=== PATIENT | female | born 1945 | race Caucasian/White ===

== ENCOUNTER 2016-10-21 12:40 | Outpatient (CLI) | payer MEDICARE | END 2016-10-21 12:41 | disposition home or self-care (01) | DX: R05 Cough (principal); R06.2 Wheezing; R91.8 Other nonspecific abnormal finding of lung field ==

== ENCOUNTER 2018-01-19 13:08 | Outpatient (CLI) | payer MEDICARE, MEDICAID | END 2018-01-19 13:09 | disposition critical access hospital (66) | LOC: EMS 13:08 | PROVIDERS: ATTEND Surgery | DX: H57.8 Other specified disorders of eye and adnexa (principal) | CPT/HCPCS: A0425; A0429 ==

== ENCOUNTER 2018-01-19 13:29 | Emergency (ER) | payer MEDICARE ==
--- NOTE | 2018-01-19 13:41 | ED Physician Documentation ---
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 Today there is some material in the eye that worried everybody. She has no acute complaints, it is not painful. 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: None Psych: None Musculoskeletal: Osteoarthritis Derm: None - Past Surgical History Past Surgical History: Yes General: Appendectomy HEENT: Detached retina repair - Present Medications Home Medications: Ambulatory Orders Medication Instructions Recorded Confirmed Rosuvastatin Calcium [Crestor] 20 mg PO HS 01/27/13 07/01/16 Acetaminophen [Tylenol] 650 mg PO Q6H PRN 07/01/16 07/01/16 Ascorbic Acid [Vitamin C] 500 mg PO DAILY 07/01/16 07/01/16 Calcium Carbonate [Tums (Calcium 500 mg PO DAILY 07/01/16 07/01/16 Carbonate 500mg)] Cholecalciferol [Vitamin D3] 800 unit PO DAILY 07/01/16 07/01/16 Diclofenac Sodium 75 mg PO DAILY 07/01/16 07/01/16 Docusate Sodium 100 mg PO DAILY 07/01/16 07/01/16 Gabapentin 2 cap PO DAILY 07/01/16 07/01/16 Ibuprofen 200 mg PO Q8H PRN 07/01/16 07/01/16 Levothyroxine [Synthroid] 50 mcg PO QDAC 07/01/16 07/01/16 Multivitamin [Multivitamins] 1 each PO DAILY 07/01/16 07/01/16 Omeprazole 40 mg PO DAILY 07/01/16 07/01/16 Oxybutynin [Ditropan] 10 mg PO DAILY PM 07/01/16 07/01/16 Venlafaxine ER [Effexor ER] 37.5 mg PO DAILY 07/01/16 07/01/16 amLODIPine [Norvasc] 5 mg PO BID 07/01/16 07/01/16 oxyCODONE/ACET 5/325 [Percocet 5 1 tab PO Q8H PRN 07/01/16 07/01/16 mg/325 mg] Polyvinyl Alcohol/Povidone 2 drops OP Q2H PRN #6 bottle 01/19/18 [Artificial Tears Drops] - Allergies Allergies/Adverse Reactions: Allergies Allergy/AdvReac Type Severity Reaction Status Date / Time No Known Drug Allergies Allergy Verified 01/27/13 09:04 - Social History Does the pt smoke?: No Smoking Status: Never smoker Does the pt drink ETOH?: Yes Does the pt have substance abuse?: No - Immunizations Immunizations are current?: No Immunizations: TDAP >10years/unknown - POLST Patient has POLST: No PD ED PE NORMAL - Vitals Vital signs reviewed: Yes - General General: Alert and oriented X 3, No acute distress - HEENT HEENT: Other (Her chamber is completely opacified. There is some material that has a tissue like density on the medial side of the sclera of the Left eye that is densely adherent to the globe.) - Neck Neck: Supple, no meningeal sign, No bony TTP - Neuro Neuro: Alert and oriented X 3 - Psych Psych: Normal mood, Normal affect Results - Vitals Vitals: Vital Signs - 24 hr 01/19/18 01/19/18 13:30 15:12 Temperature 37.2 C Heart Rate 88 82 Respiratory 16 16 Rate Blood Pressure 155/74 H 117/83 H O2 Saturation 95 96 Oxygen O2 Source Room air PD MEDICAL DECISION MAKING - ED course ED course: She has a left eye that is already blind, she has some tissue on the medial side , I am not quite sure what it represents. I did speak with the physician predator control trapper for her eye doctor, Dr Socrates Jett, who felt that there was no urgent intervention needed she just needs to follow-up in the office. Departure - Departure Disposition: 01 Home, Self Care Clinical Impression: Abnormal eye finding Condition: Good Record reviewed to determine appropriate education?: Yes Follow-Up: Yaniv Lynn MD [Provider Admit Priv/Credential] - Prescriptions: Polyvinyl Alcohol/Povidone [Artificial Tears Drops] 2 drops OP Q2H PRN #6 bottle PRN Reason: irritation Comments: She needs to follow-up with the eye doctor, make the next available appointment. No specific treatment is required at this juncture. Your blood pressure was elevated today on check into the emergency department. This does not mean that you have hypertension, it is a common phenomenon to come to the emergency department and have elevated blood pressure. I recommend that you see your primary care physician within the week to have it rechecked when you are feeling better. Discharge Date/Time: 01/19/18 15:15
[2018-01-19 15:13] VITALS: BP 117/83
== END 2018-01-19 15:15 | disposition home or self-care (01) ==
LOC: EDUNIT# → ED 13:29
DX: H57.9 Unspecified disorder of eye and adnexa (principal); H54.62 Unqualified visual loss, left eye, normal vision right eye; I10 Essential (primary) hypertension; G35 Multiple sclerosis
CPT/HCPCS: 99283

== ENCOUNTER 2018-03-09 08:00 | Outpatient (CLI) | payer MEDICARE, MEDICAID ==
[2018-03-09 14:11] LABS: BASOPHILS % (AUTO) 0.2 %; EOSINOPHILS # (AUTO) 0.1 10^3/uL (0.0-0.7); EOSINOPHILS % (AUTO) 1.4 %; HGB - HEMOGLOBIN 13.7 g/dL (12.0-16.0); LYMPHOCYTES # (AUTO) 2.4 10^3/uL (1.5-3.5); LYMPHOCYTES % (AUTO) 23.1 %; MEAN CORPUSCULAR HEMOGLOBIN 31.2 pg (27.0-31.0); MEAN CORPUSCULAR HGB CONC 33.4 g/dL (32.0-36.0); MEAN CORPUSCULAR VOLUME 93.4 fL (81.0-99.0); MEAN PLATELET VOLUME 8.4 fL (7.9-10.8); MONOCYTES # (AUTO) 1.1 10^3/uL (0.0-1.0); MONOCYTES % (AUTO) 10.1 %; NEUTROPHILS # (AUTO) 6.8 10^3/uL (1.5-6.6); NEUTROPHILS % (AUTO) 65.2 %; PLT - PLATELET COUNT 323 10^3/uL (130-450); RED BLOOD COUNT 4.38 10^6/uL (4.20-5.40); RED CELL DISTRIBUTION WIDTH 14.5 % (12.0-15.0); WHITE BLOOD COUNT 10.4 x10^3/uL (4.8-10.8)
[2018-03-09 14:22] LABS: ALBUMIN 3.5 g/dL (3.2-5.5); ALBUMIN/GLOBULIN RATIO 0.7 (1.0-2.2); BILIRUBIN,TOTAL 0.4 mg/dL (0.2-1.0); CALCIUM 8.9 mg/dL (8.5-10.3); CREATININE 0.6 mg/dL (0.4-1.0); TOTAL PROTEIN 8.5 g/dL (6.7-8.2)
== END 2018-03-09 08:01 | disposition home or self-care (01) ==
LOC: LAB.R 08:00
PROVIDERS: ATTEND Internal Medicine
DX: I10 Essential (primary) hypertension (principal); E03.9 Hypothyroidism, unspecified; Z79.899 Other long term (current) drug therapy
CPT/HCPCS: 80053; 84443; 85025

== ENCOUNTER 2018-09-05 11:20 | Outpatient (CLI) | payer MEDICARE, MEDICAID ==
--- NOTE | 2018-09-05 12:56 | XRAY Report ---
Reason: KNEE PAIN,LEFT Procedure Date: 09/05/2018 Accession Number: [id number] / [id number] Procedure: XR - Knee 3 View LT CPT Code: FULL RESULT: EXAM: LEFT KNEE RADIOGRAPHY EXAM DATE: 09/05/2018 11:51 AM. CLINICAL HISTORY: Left knee pain for 6 months with a sensation of the knee giving way. COMPARISON: None. TECHNIQUE: 3 views. FINDINGS: Bones: Normal. No fractures or bone lesions. Joints: There are mild to moderate degenerative changes in the weightbearing compartments, medially predominant. No effusion. No subluxations. Soft Tissues: Normal. No soft tissue swelling. IMPRESSION: Degenerative disease. RADIA
== END 2018-09-05 11:21 | disposition home or self-care (01) ==
LOC: DI 11:20
PROVIDERS: ATTEND Nurse Practitioner Primary Care
DX: M17.12 Unilateral primary osteoarthritis, left knee (principal)

== ENCOUNTER 2018-10-17 08:00 | Outpatient (CLI) | payer MEDICARE, MEDICAID ==
[2018-10-17 15:56] LABS: BASOPHILS % (AUTO) 0.3 %; EOSINOPHILS # (AUTO) 0.1 10^3/uL (0.0-0.7); EOSINOPHILS % (AUTO) 1.1 %; HGB - HEMOGLOBIN 13.1 g/dL (12.0-16.0); LYMPHOCYTES # (AUTO) 2.4 10^3/uL (1.5-3.5); LYMPHOCYTES % (AUTO) 24.4 %; MEAN CORPUSCULAR HEMOGLOBIN 31.3 pg (27.0-31.0); MEAN CORPUSCULAR HGB CONC 34.1 g/dL (32.0-36.0); MEAN CORPUSCULAR VOLUME 91.7 fL (81.0-99.0); MEAN PLATELET VOLUME 8.2 fL (7.9-10.8); MONOCYTES % (AUTO) 10.2 %; NEUTROPHILS # (AUTO) 6.4 10^3/uL (1.5-6.6); PLT - PLATELET COUNT 326 10^3/uL (130-450); RED BLOOD COUNT 4.18 10^6/uL (4.20-5.40); RED CELL DISTRIBUTION WIDTH 14.2 % (12.0-15.0); WHITE BLOOD COUNT 9.9 x10^3/uL (4.8-10.8)
== END 2018-10-17 23:59 | disposition home or self-care (01) ==
LOC: LAB.R 08:00
PROVIDERS: ATTEND Nurse Practitioner Primary Care
DX: Z79.899 Other long term (current) drug therapy (principal); R05 Cough; I50.9 Heart failure, unspecified
CPT/HCPCS: 83880; 84132; 85025

== ENCOUNTER 2018-10-17 15:50 | Outpatient (CLI) | payer MEDICARE, MEDICAID ==
--- NOTE | 2018-10-17 16:32 | XRAY Report ---
Reason: HEART FAILURE, COUGH Procedure Date: 10/17/2018 Accession Number: [id number] / [id number] Procedure: XR - Chest 2 View X-Ray CPT Code: 55772 FULL RESULT: EXAM: CHEST RADIOGRAPHY EXAM DATE: 10/17/2018 04:04 PM. CLINICAL HISTORY: HEART FAILURE, COUGH. COMPARISON: 10/21/2016. TECHNIQUE: 2 views. FINDINGS: Lungs/Pleura: Low inspiratory volume. No focal consolidation. Scarring in probable subsegmental bandlike atelectasis at lung bases. No pleural effusion. No pneumothorax. Mediastinum: Heart and mediastinal contours are unremarkable. Other: Exaggeration of thoracic kyphosis, scoliosis and spondylotic changes again seen. No acute bone abnormality. IMPRESSION: 1. No acute cardiopulmonary disease. Probable subsegmental atelectasis at lung bases without separate consolidation. 2. Exam otherwise as above. RADIA
== END 2018-10-17 15:51 | disposition home or self-care (01) ==
LOC: DI 15:50
PROVIDERS: ATTEND Nurse Practitioner Primary Care
DX: R05 Cough (principal); I50.9 Heart failure, unspecified; Z79.899 Other long term (current) drug therapy
CPT/HCPCS: 71046; 83880; 84132; 85025

== ENCOUNTER 2018-11-18 08:00 | Outpatient (CLI) | payer MEDICARE, MEDICAID ==
[2018-11-18 14:17] LABS: CALCIUM 9.1 mg/dL (8.5-10.3); CREATININE 0.6 mg/dL (0.4-1.0)
== END 2018-11-18 23:59 | disposition home or self-care (01) ==
LOC: LAB.R 08:00
PROVIDERS: ATTEND Nurse Practitioner Primary Care
DX: R60.9 Edema, unspecified (principal); Z79.899 Other long term (current) drug therapy
CPT/HCPCS: 80048

== ENCOUNTER 2019-02-22 08:00 | Outpatient (CLI) | payer MEDICARE, MEDICAID | END 2019-02-22 23:59 | disposition home or self-care (01) | LOC: LAB.R 08:00 | PROVIDERS: ATTEND Family Medicine | DX: R35.0 Frequency of micturition (principal) | CPT/HCPCS: 87086 ==

== ENCOUNTER 2019-03-29 08:00 | Outpatient (CLI) | payer MEDICARE, MEDICAID | END 2019-03-29 23:59 | disposition home or self-care (01) | LOC: LAB.R 08:00 | PROVIDERS: ATTEND Family Medicine | DX: N39.0 Urinary tract infection, site not specified (principal) | CPT/HCPCS: 87077; 87086 ==

== ENCOUNTER 2019-06-22 09:06 | Outpatient (CLI) | payer MEDICARE, MEDICAID ==
[2019-06-22 09:32] LABS: BASOPHILS % (AUTO) 0.4 %; EOSINOPHILS # (AUTO) 0.2 10^3/uL (0.0-0.7); EOSINOPHILS % (AUTO) 2.3 %; HGB - HEMOGLOBIN 13.1 g/dL (12.0-16.0); LYMPHOCYTES # (AUTO) 2.8 10^3/uL (1.5-3.5); LYMPHOCYTES % (AUTO) 30.8 %; MEAN CORPUSCULAR HEMOGLOBIN 31.2 pg (27.0-31.0); MEAN CORPUSCULAR HGB CONC 33.3 g/dL (32.0-36.0); MEAN CORPUSCULAR VOLUME 93.6 fL (81.0-99.0); MEAN PLATELET VOLUME 9.5 fL (7.9-10.8); MONOCYTES # (AUTO) 0.9 10^3/uL (0.0-1.0); MONOCYTES % (AUTO) 10.3 %; NEUTROPHILS % (AUTO) 55.6 %; PLT - PLATELET COUNT 316 10^3/uL (130-450); RED CELL DISTRIBUTION WIDTH 14.2 % (12.0-15.0)
[2019-06-22 09:51] LABS: ALBUMIN 3.9 g/dL (3.2-5.5); ALBUMIN/GLOBULIN RATIO 0.8 (1.0-2.2); BILIRUBIN,TOTAL 0.5 mg/dL (0.2-1.0); CALCIUM 9.4 mg/dL (8.5-10.3); CREATININE 0.8 mg/dL (0.4-1.0); TOTAL PROTEIN 8.8 g/dL (6.7-8.2)
[2019-06-22 10:12] LABS: THYROID STIMULATING HORMONE 3.22 uIU/mL (0.34-5.60)
[2019-06-22 10:14] LABS: FREE T4 (FREE THYROXINE) 1.15 ng/dL (0.58-1.64)
--- NOTE | 2019-06-23 08:58 | XRAY Report ---
Reason: SUBLUXATION,JOINT Procedure Date: 06/22/2019 Accession Number: [id number] / [id number] Procedure: XR - Wrist 4 View RT CPT Code: FULL RESULT: EXAM: RIGHT WRIST RADIOGRAPHY EXAM DATE: 06/22/2019 09:50 AM. CLINICAL HISTORY: Subluxation, joint. Patient unable to move thumb. COMPARISON: None. TECHNIQUE: 3 views. FINDINGS: Severe narrowing of the first carpometacarpal articulation, partial collapse of the trapezium. Subchondral sclerotic and cystic changes at the base of the first metacarpal and of the trapezium. There is moderate narrowing of the second carpometacarpal articulation. The thumb is focally flexed at the carpometacarpal articulation. No dislocation identified. The articulations of the wrist elsewhere appear within normal limits. IMPRESSION: Severe focal degenerative changes at the first carpometacarpal articulation. RADIA
== END 2019-06-22 09:07 | disposition home or self-care (01) ==
LOC: LAB 09:06
PROVIDERS: ATTEND Family Medicine
DX: M19.041 Primary osteoarthritis, right hand (principal); K21.9 Gastro-esophageal reflux disease without esophagitis; I10 Essential (primary) hypertension; E03.9 Hypothyroidism, unspecified; G35 Multiple sclerosis
CPT/HCPCS: 36415; 80053; 84439; 84443; 84481; 85025

== ENCOUNTER 2020-03-18 09:09 | Outpatient (CLI) | payer MEDICARE, MEDICAID | END 2020-03-18 09:10 | disposition critical access hospital (66) | LOC: EMS 09:09 | PROVIDERS: ATTEND Surgery | DX: R58 Hemorrhage, not elsewhere classified (principal) | CPT/HCPCS: A0425; A0429 ==

== ENCOUNTER 2020-03-18 09:25 | Emergency (ER) | payer MEDICARE, MEDICAID ==
--- NOTE | 2020-03-18 10:31 | ED Physician Documentation ---
PD HPI GI BLEED - Stated complaint Stated Complaint: BLEEDING - Chief complaint Chief Complaint: Abd Pain - History obtained from History obtained from: Patient - History of Present Illness Timing - onset: Yesterday (staff at [facility] note the patient's Depends to have small spot of blood yesterday, and this morning with large amount of blood in it. She denies diarrhea, abd pain, nausea, dysuria.) Timing - duration: Days (1) Timing - details: Gradual onset (mild blood yesterday, more today) Associated symptoms: Other (not clear if blood from rectum, vaginal, or urine.). No: Diarrhea, Constipation, Abdominal pain Contributing factors: No: Sick contact, NSAID use, Anticoagulated Similar symptoms before: Has not had sx before Recently seen: Not recently seen Review of Systems Constitutional: denies: Fever, Chills Nose: denies: Rhinorrhea / runny nose, Congestion Throat: denies: Sore throat Cardiac: denies: Chest pain / pressure Respiratory: denies: Cough GI: denies: Abdominal Pain, Nausea, Vomiting, Diarrhea : denies: Dysuria Neurologic: denies: Generalized weakness, Near syncope Endocrine: denies: Easy bruising / bleeding PD PAST MEDICAL HISTORY - Past Medical History Cardiovascular: Hypertension Respiratory: None Endocrine/Autoimmune: None GI: None LOAN 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: 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 Psych: None Musculoskeletal: Osteoarthritis Derm: None - Past Surgical History Past Surgical History: Yes General: Appendectomy HEENT: Detached retina repair - Present Medications Home Medications: Ambulatory Orders Medication Instructions Recorded Confirmed Rosuvastatin Calcium [Crestor] 20 mg PO HS 01/27/13 07/01/16 Acetaminophen [Tylenol] 650 mg PO Q6H PRN 07/01/16 07/01/16 Ascorbic Acid [Vitamin C] 500 mg PO DAILY 07/01/16 07/01/16 Calcium Carbonate [Tums (Calcium 500 mg PO DAILY 07/01/16 07/01/16 Carbonate 500mg)] Cholecalciferol [Vitamin D3] 800 unit PO DAILY 07/01/16 07/01/16 Diclofenac Sodium 75 mg PO DAILY 07/01/16 07/01/16 Docusate Sodium 100 mg PO DAILY 07/01/16 07/01/16 Gabapentin 2 cap PO DAILY 07/01/16 07/01/16 Ibuprofen 200 mg PO Q8H PRN 07/01/16 07/01/16 Levothyroxine [Synthroid] 50 mcg PO QDAC 07/01/16 07/01/16 Multivitamin [Multivitamins] 1 each PO DAILY 07/01/16 07/01/16 Omeprazole 40 mg PO DAILY 07/01/16 07/01/16 Oxybutynin [Ditropan] 10 mg PO DAILY PM 07/01/16 07/01/16 Venlafaxine ER [Effexor ER] 37.5 mg PO DAILY 07/01/16 07/01/16 amLODIPine [Norvasc] 5 mg PO BID 07/01/16 07/01/16 oxyCODONE/ACET 5/325 [Percocet 5 1 tab PO Q8H PRN 07/01/16 07/01/16 mg/325 mg] Polyvinyl Alcohol/Povidone 2 drops OP Q2H PRN #6 bottle 01/19/18 [Artificial Tears Drops] Cephalexin [Keflex] 500 mg PO TID #20 capsule 03/18/20 - Allergies Allergies/Adverse Reactions: Allergies Allergy/AdvReac Type Severity Reaction Status Date / Time No Known Drug Allergies Allergy Verified 01/27/13 09:04 - Living Situation Living Situation: reports: Alone Living Arrangement: reports: Assisted living - Social History Does the pt smoke?: No Smoking Status: Never smoker Does the pt drink ETOH?: Yes Does the pt have substance abuse?: No - Immunizations Immunizations are current?: No Immunizations: TDAP >10years/unknown - POLST Patient has POLST: No PD ED PE NORMAL - Vitals Vital signs reviewed: Yes - General General: No acute distress, Well developed/nourished. No: Alert and oriented X 3 (to person and place, not sure of time/month) - HEENT HEENT: Pharynx benign - Neck Neck: Supple, no meningeal sign, No adenopathy - Cardiac Cardiac: RRR, No murmur - Respiratory Respiratory: Clear bilaterally - Abdomen Abdomen: Normal bowel sounds, Soft, Non distended, No organomegaly (ssd) - Female Female : General Manager Farm present (Nurse Cynthia ), Other (no noted vaginal blood nor lesions. There is mild oozing blood from urethra visible. ) - Rectal Rectal: Other (no rectal bleeding noted, no hemorrhoids. Digital exam with some firm stool in vault that appears brown. ) - Back Back: No CVA TTP - Derm Derm: Normal color, Warm and dry - Extremities Extremities: No tenderness to palpate, Normal ROM s pain, No edema, No calf tenderness / cord - Neuro Neuro: automobile relocation engineer 2-12 intact, No motor deficit, No sensory deficit Eye Opening: Spontaneous Motor: Obeys Commands Verbal: Oriented GCS Score: 15 Results - Vitals Vitals: Vital Signs - 24 hr 03/18/20 03/18/20 03/18/20 09:30 12:23 14:00 Temperature 36.7 C 37.1 C Heart Rate 103 H 82 79 Respiratory 16 14 16 Rate Blood Pressure 167/75 H 151/65 H 158/72 H O2 Saturation 95 96 96 Oxygen O2 Source Room air - Labs Labs: Laboratory Tests 03/18/20 03/18/20 03/18/20 10:30 10:30 10:30 WBC 16.6 H RBC 4.29 Hgb 13.5 Hct 40.0 MCV 93.2 MCH 31.5 H MCHC 33.8 RDW 13.8 Plt Count 414 MPV 9.4 Neut # (Auto) 14.1 H Lymph # (Auto) 1.4 L [place] # (Auto) 1.0 Eos # (Auto) 0.0 Baso # (Auto) 0.0 Absolute Nucleated RBC 0.00 Nucleated RBC % 0.0 Sodium 139 Potassium 3.7 Chloride 103 Carbon Dioxide 22 Anion Gap 14.0 H BUN 26 H Creatinine 1.1 H Estimated GFR (MDRD) 48 L Glucose 164 H Calcium 9.2 Total Bilirubin 0.7 AST 18 ALT 23 Alkaline Phosphatase 75 Total Protein 9.0 H Albumin 3.3 Globulin 5.7 H Albumin/Globulin Ratio 0.6 L Lipase 25 Urine Color Urine Clarity Urine pH Ur Specific [place] Urine Protein Urine Glucose (UA) Urine Ketones Urine Occult Blood Urine Nitrite Urine Bilirubin Urine Urobilinogen Ur Leukocyte Esterase Urine RBC Urine WBC Urine WBC Clumps Ur Squamous Epith Cells Urine Bacteria Ur Microscopic Review Urine Culture Comments Blood Type Blood Type Recheck A POSITIVE Antibody Screen 03/18/20 03/18/20 11:18 12:50 WBC RBC Hgb Hct MCV MCH MCHC RDW Plt Count MPV Neut # (Auto) Lymph # (Auto) [place] # (Auto) Eos # (Auto) Baso # (Auto) Absolute Nucleated RBC Nucleated RBC % Sodium Potassium Chloride Carbon Dioxide Anion Gap BUN Creatinine Estimated GFR (MDRD) Glucose Calcium Total Bilirubin AST ALT Alkaline Phosphatase Total Protein Albumin Globulin Albumin/Globulin Ratio Lipase Urine Color RED/BLOODY Urine Clarity BLOODY Urine pH 8.0 H Ur Specific [place] 1.015 Urine Protein >=300 H Urine Glucose (UA) NEGATIVE Urine Ketones 15 H Urine Occult Blood LARGE H Urine Nitrite NEGATIVE Urine Bilirubin NEGATIVE Urine Urobilinogen 0.2 (NORMAL) Ur Leukocyte Esterase TRACE H Urine RBC TNTC H Urine WBC >25 H Urine WBC Clumps PRESENT Ur Squamous Epith Cells FEW Squamous Urine Bacteria Many H Ur Microscopic Review INDICATED Urine Culture Comments INDICATED Blood Type A POSITIVE Blood Type Recheck Antibody Screen NEGATIVE - Rads (name of study) abd/pelvic CT Radiology: Prelim report reviewed (no unusual masses. Some urethral edema c/w cystitis. ), See rad report PD MEDICAL DECISION MAKING - ED course Complexity details: reviewed results, re-evaluated patient (no significant ongoing bleeding, just mild trace of blood from urethra. No clots. ), considered differential, d/w patient Departure - Departure Disposition: 01 Home, Self Care Clinical Impression: Hematuria Qualifiers: Hematuria type: gross Qualified Code(s): R31.0 - Gross hematuria Cystitis, acute Qualifiers: Hematuria presence: with hematuria Qualified Code(s): N30.01 - Acute cystitis with hematuria Condition: Stable Record reviewed to determine appropriate education?: Yes Instructions: ED Hematuria, ED UTI Cystitis Female Prescriptions: Cephalexin [Keflex] 500 mg PO TID #20 capsule Comments: There is no signs of blood in your stool to the rectum. He did have blood coming from urethra from apparent bladder infection. We will treat this with cephalexin 3 times a day for a week. Stay well-hydrated. Tylenol if needed for pains. Recheck if not improved over the next day or 2. Discharge Date/Time: 03/18/20 15:37
[2020-03-18 10:44] LABS: BASOPHILS % (AUTO) 0.2 %; HGB - HEMOGLOBIN 13.5 g/dL (12.0-16.0); LYMPHOCYTES # (AUTO) 1.4 10^3/uL (1.5-3.5); LYMPHOCYTES % (AUTO) 8.3 %; MEAN CORPUSCULAR HEMOGLOBIN 31.5 pg (27.0-31.0); MEAN CORPUSCULAR HGB CONC 33.8 g/dL (32.0-36.0); MEAN CORPUSCULAR VOLUME 93.2 fL (81.0-99.0); MEAN PLATELET VOLUME 9.4 fL (7.9-10.8); MONOCYTES % (AUTO) 6.1 %; NEUTROPHILS # (AUTO) 14.1 10^3/uL (1.5-6.6); NEUTROPHILS % (AUTO) 84.7 %; PLT - PLATELET COUNT 414 10^3/uL (130-450); RED BLOOD COUNT 4.29 10^6/uL (4.20-5.40); RED CELL DISTRIBUTION WIDTH 13.8 % (12.0-15.0); WHITE BLOOD COUNT 16.6 x10^3/uL (4.8-10.8)
[2020-03-18 10:56] LABS: ALBUMIN 3.3 g/dL (3.2-5.5); ALBUMIN/GLOBULIN RATIO 0.6 (1.0-2.2); BILIRUBIN,TOTAL 0.7 mg/dL (0.2-1.0); CALCIUM 9.2 mg/dL (8.5-10.3); CREATININE 1.1 mg/dL (0.4-1.0)
[2020-03-18] MEDS ORDERED: SODIUM CHLORIDE 0.9% 1,000 ML IV STA (11:01)
[2020-03-18] MEDS ORDERED: IOVERSOL 320 100 ML VIAL IVP ONE ×2 (11:27→15:16)
--- NOTE | 2020-03-18 12:37 | CT Report ---
PROCEDURE: Abdomen/Pelvis W INDICATIONS: vaginal bleeding acute CONTRAST: IV CONTRAST: Optiray 320 ml: 100 PO CONTRAST: *NO PO CONTRAST TECHNIQUE: After the administration of oral and intravenous contrast, 5 mm thick sections acquired from the diap hragms to the symphysis. 5 mm thick coronal and sagittal reformats were acquired. For radiation dos e reduction, the following was used: automated exposure control, adjustment of mA and/or kV accordin g to patient size. COMPARISON: 06/25/2014 FINDINGS: Image quality: Excellent. ABDOMEN: Lung bases: Mild bibasilar atelectatic changes. Lung bases are otherwise clear.. Heart size is carmelo l. Solid organs: Liver and spleen are normal in size and enhancement. Gallbladder is unremarkable Audie iary system is non dilated. Pancreas enhances normally. No adrenal nodules. Kidneys demonstrate normal and symmetric uptake of IV contrast. Tiny cortical cysts present bilateral ly. There is mild right hydronephrosis and hydroureter. No nephrolithiasis. Peritoneum and bowel: Bowel loops demonstrate normal wall thickness and caliber. No free fluid or a ir. Mildly increased quantity of rectal stool present. Scattered diverticula throughout the colon. Nodes and vessels: No retroperitoneal or mesenteric adenopathy by size criteria. Aorta and inferior vena cava are normal in size. Miscellaneous: No ventral hernias. PELVIS: Genitourinary: There is circumferential urothelial enhancement and moderate to extensive serosal and perivesicular inflammatory changes. Moderate perivesicular fat stranding. No intraluminal mass or tom cifications in the urinary bladder. The uterus and ovaries appear normal though prominent for age. A pessary is present. This appears to be larger and more hyperdense compared to the prior study, potent ially calcifying, or it has been replaced in the interim. Miscellaneous: No inguinal hernias or adenopathy. Bones: No suspicious bony lesions. No vertebral body compression fractures. IMPRESSION: 1. Findings of acute cystitis. 2. Mild hydroureteronephrosis without obstructing lesion suggests possible ascending infection or rec ently passed calculus. No evidence of pyelonephritis. 3. Pessary present, enlarged and more hyperdense since the prior study. Correlate clinically. Reviewed by: Lexie Paula MD on 03/18/2020 12:36 PM PDT Approved by: Lexie Paula MD on 03/18/2020 12:36 PM PDT Station ID: [id number]
[2020-03-18 13:17] LABS: BILIRUBIN,URINE NEGATIVE (NEGATIVE); GLUCOSE, URINE (UA) NEGATIVE (NEGATIVE); KETONES,URINE (UA) 15 mg/dL (NEGATIVE); LEUKOCYTE ESTERASE, URINE TRACE (NEGATIVE); NITRITE,URINE NEGATIVE (NEGATIVE); OCCULT BLOOD,URINE LARGE (NEGATIVE); PROTEIN,URINE >=300 mg/dL (NEGATIVE); UROBILINOGEN,URINE 0.2 (NORMAL) E.U./dL (NORMAL)
[2020-03-18 13:21] LABS: CLARITY,URINE BLOODY (CLEAR)
[2020-03-18] MEDS ORDERED: cefTRIAXone 1 GM VIAL IVP STA (13:36)
[2020-03-18 13:38] LABS: BACTERIA,URINE Many /HPF (None Seen); RBC,URINE TNTC /HPF (0-5); SQUAMOUS EPITHELIAL CELL,UR FEW Squamous (<= Few); WBC CLUMPS,URINE PRESENT
[2020-03-18 14:16] VITALS: BP 158/72
== END 2020-03-18 15:37 | disposition home or self-care (01) ==
LOC: EDUNIT# → ED 09:25
DX: N30.01 Acute cystitis with hematuria (principal); N13.39 Other hydronephrosis; I10 Essential (primary) hypertension
CPT/HCPCS: 36415; 51701; 74177; 80053; 81001; 83690; 85025; 86850; 86900; 86901; 87077; 87086; 96361; 96374; 99284; Q9967; 81003

== ENCOUNTER 2020-03-20 15:21 | Outpatient (CLI) | payer MEDICARE, MEDICAID | END 2020-03-20 15:22 | disposition short-term general hospital (02) | LOC: EMS 15:21 | PROVIDERS: ATTEND Surgery | DX: N93.9 Abnormal uterine and vaginal bleeding, unspecified (principal) | CPT/HCPCS: A0425; A0429; A0888 ==

== ENCOUNTER 2020-10-26 11:14 | Outpatient (CLI) | payer MEDICARE, MEDICAID | END 2020-10-26 11:15 | disposition critical access hospital (66) | LOC: EMS 11:14 | PROVIDERS: ATTEND Surgery | DX: R56.9 Unspecified convulsions (principal) | CPT/HCPCS: A0425; A0427 ==

== ENCOUNTER 2020-10-26 11:32 | Emergency (ER) | payer MEDICARE, MEDICAID ==
[2020-10-26] MEDS ORDERED: SODIUM CHLORIDE 0.9% 1,000 ML IV STA (11:50)
--- NOTE | 2020-10-26 11:52 | ED Physician Documentation ---
History of Present Illness - Stated complaint Stated Complaint: SEIZURE - Additonal information Additional information: 75-year-old female presents to the emergency department for evaluation of acute onset seizure. She lives at [facility] and was transferring from 1 chair to another when she suddenly dropped to the ground. Bystanders report about 1 minute long generalized tonic-clonic seizure. No history of previous seizure disorder. When EMS arrived patient was alert and making incomprehensible sounds however for us she is awake and making repetitive statements "move me up move me up". Blood glucose on scene 176 mg/dl She does have a history of multiple sclerosis, hypothyroidism as well as a chronic pain syndrome. She has a POLST form with her that indicates she is a DNR/comfort measures only. 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 Psych: None Musculoskeletal: Osteoarthritis Derm: None - Past Surgical History Past Surgical History: Yes General: Appendectomy HEENT: Detached retina repair - Present Medications Home Medications: Ambulatory Orders Medication Instructions Recorded Confirmed Diclofenac Sodium Dr [Voltaren] 1 tab PO DAILY 10/26/20 10/26/20 Fluticasone [Flonase] 1 spray IN DAILY 10/26/20 10/26/20 Gabapentin [Neurontin] 200 mg PO DAILY 10/26/20 10/26/20 Levothyroxine Sodium [Synthroid] 1 tab PO DAILY 10/26/20 10/26/20 Omeprazole 1 tab PO DAILY 10/26/20 10/26/20 Oxybutynin [Ditropan] 10 mg PO DAILY 10/26/20 10/26/20 Rosuvastatin Calcium [Crestor] 1 tab PO DAILY 10/26/20 10/26/20 Valsartan [Diovan] 1 tab PO DAILY 10/26/20 10/26/20 Venlafaxine [Effexor] 1 tab PO DAILY 10/26/20 10/26/20 cephALEXin [Keflex] 500 mg PO BID #14 capsule 10/26/20 - Allergies Allergies/Adverse Reactions: Allergies Allergy/AdvReac Type Severity Reaction Status Date / Time amlodipine Allergy Unknown Verified 10/26/20 12:20 iodine Allergy Unknown Verified 10/26/20 12:20 - Social History Does the pt smoke?: No Smoking Status: Never smoker Does the pt drink ETOH?: Yes Does the pt have substance abuse?: No - Immunizations Immunizations are current?: No Immunizations: TDAP >10years/unknown - POLST Patient has POLST: No PD ED PE EXPANDED - General General: Alert - HEENT HEENT: Dry mucous membranes, Dental decay, Tongue laceration (right distal lateral side. no active bleeding), Other (Right eye pupil briskly reactive. Left eye with scleral buckling at baseline unable to evaluate pupillary response) - Neck Neck: Supple w/out meningeal sx. No: Adenopathy - Cardiac Cardiac: Regular Rate, Regular Rhythm, Radial strong equal, Pedal strong equal, Cap refill < 2 sec - Respiratory Respiratory: Clear to ausultation kevan. No: Distress, Labored - Abdomen Abdomen: Normal Bowel sounds. No: Tender to palpation - Extremities Extremities: Normal, Other (moves all extremities equally). No: Deformity, Tenderness - Neuro Neuro: Confused, CNII-XII intact - GCS Eye Opening: Spontaneous Motor: Obeys Commands Verbal: Confused Total: 14 Results - Vitals Vitals: Vital Signs - 24 hr 10/26/20 10/26/20 11:35 12:28 Temperature 36.3 C L 36.6 C Heart Rate 98 84 Respiratory 20 18 Rate Blood Pressure 159/87 H 148/68 H O2 Saturation 98 99 Oxygen O2 Source Room air - Labs Labs: Laboratory Tests 10/26/20 10/26/20 10/26/20 11:16 12:00 12:00 WBC 10.5 RBC 3.58 L Hgb 10.6 L Hct 33.0 L MCV 92.2 MCH 29.6 MCHC 32.1 RDW 15.2 H Plt Count 343 MPV 9.3 Neut # (Auto) 6.9 H Lymph # (Auto) 2.7 George # (Auto) 0.8 Eos # (Auto) 0.1 Baso # (Auto) 0.0 Absolute Nucleated RBC 0.00 Nucleated RBC % 0.0 Sodium 134 L Potassium 3.4 L Chloride 99 L Carbon Dioxide 22 Anion Gap 13.0 BUN 13 Creatinine 0.8 Estimated GFR (MDRD) 70 L Glucose 148 H Calcium 8.7 Total Bilirubin 0.3 AST 21 ALT 16 Alkaline Phosphatase 56 Total Protein 8.2 Albumin 3.4 Globulin 4.8 H Albumin/Globulin Ratio 0.7 L Lipase 22 Urine Color LIGHT YELLOW Urine Clarity CLOUDY Urine pH 7.0 Ur Specific [place] 1.015 Urine Protein TRACE Urine Glucose (UA) NEGATIVE Urine Ketones NEGATIVE Urine Occult Blood TRACE-LYSE Urine Nitrite POSITIVE H Urine Bilirubin NEGATIVE Urine Urobilinogen 0.2 (NORMAL) Ur Leukocyte Esterase LARGE H Urine RBC 0-5 Urine WBC 6-10 H Ur Squamous Epith Cells FEW Squamous Urine Bacteria Moderate H Ur Microscopic Review INDICATED Urine Culture Comments INDICATED - Rads (name of study) CT head Radiology: Final report received (No acute intracranial process) PD MEDICAL DECISION MAKING - ED course Complexity details: reviewed results, re-evaluated patient, considered differential, d/w patient ED course: 75-year-old female presents the emergency department for evaluation of acute seizure activity noted this morning when she is transferring from 1 chair to another. She suddenly dropped to the ground and per staff on scene she had about 1 minute of tonic-clonic seizures. When EMS arrived she was mumbling and making incomprehensible sounds. By the time she arrived here in the emergency department her words were fluid but repetitive. She has no history of previous seizure activity. She is a DNR comfort measures patient and has a history of multiple sclerosis and chronic pain syndrome. Screening testing here in the emergency department included CBC routine chemistry urine and a head CT. The urine is consistent with acute cystitis. No fevers or leukocytosis. I was unable to elicit any abdominal pain. I doubt pyelonephritis. Noncontrast CT of the head also showed no acute intracranial abnormalities. On reevaluation the patient is much more alert and aware following commands easily without any focal deficits. I did attempt to contact 2 of the listed emergency contact numbers. Unfortunately 1 number was incorrect and the other went to a voice mailbox and I was unable to leave a message as it was full. She will be transferred back to [place]. We will start a prescription for the cystitis with Keflex. Emergent return precautions were discussed on discharge paperwork. Departure - Departure Disposition: Home, Self Care Clinical Impression: Seizure, Cystitis Condition: Stable Record reviewed to determine appropriate education?: Yes Follow-Up: Ridge Kline MD [Primary Care Provider] - Within 3 Days Prescriptions: cephALEXin [Keflex] 500 mg PO BID #14 capsule Comments: You were seen here in the emergency department for evaluation of a seizure. Your screening labs today were normal with the exception of a urinary tract infection. Please begin taking the Keflex twice daily as prescribed. The CT of your head did not show any new or worrisome findings. You are cleared to be discharged back to [place]. Please continue to take all other medications as previously prescribed. Discuss this ED visit with your primary care provider as soon as possible. Return to the emergency department for any fevers recurrent seizure activity or any other emergent concerns
[2020-10-26 12:02] LABS: BILIRUBIN,URINE NEGATIVE (NEGATIVE); GLUCOSE, URINE (UA) NEGATIVE (NEGATIVE); KETONES,URINE (UA) NEGATIVE (NEGATIVE); LEUKOCYTE ESTERASE, URINE LARGE (NEGATIVE); NITRITE,URINE POSITIVE (NEGATIVE); OCCULT BLOOD,URINE TRACE-LYSE (NEGATIVE); PROTEIN,URINE TRACE mg/dL (NEGATIVE); UROBILINOGEN,URINE 0.2 (NORMAL) E.U./dL (NORMAL)
[2020-10-26 12:04] LABS: CLARITY,URINE CLOUDY (CLEAR)
[2020-10-26 12:07] LABS: BASOPHILS % (AUTO) 0.2 %; EOSINOPHILS # (AUTO) 0.1 10^3/uL (0.0-0.7); EOSINOPHILS % (AUTO) 0.5 %; HGB - HEMOGLOBIN 10.6 g/dL (12.0-16.0); LYMPHOCYTES # (AUTO) 2.7 10^3/uL (1.5-3.5); LYMPHOCYTES % (AUTO) 25.7 %; MEAN CORPUSCULAR HEMOGLOBIN 29.6 pg (27.0-31.0); MEAN CORPUSCULAR HGB CONC 32.1 g/dL (32.0-36.0); MEAN CORPUSCULAR VOLUME 92.2 fL (81.0-99.0); MEAN PLATELET VOLUME 9.3 fL (7.9-10.8); MONOCYTES # (AUTO) 0.8 10^3/uL (0.0-1.0); MONOCYTES % (AUTO) 7.4 %; NEUTROPHILS # (AUTO) 6.9 10^3/uL (1.5-6.6); NEUTROPHILS % (AUTO) 65.7 %; PLT - PLATELET COUNT 343 10^3/uL (130-450); RED BLOOD COUNT 3.58 10^6/uL (4.20-5.40); RED CELL DISTRIBUTION WIDTH 15.2 % (12.0-15.0); WHITE BLOOD COUNT 10.5 x10^3/uL (4.8-10.8)
[2020-10-26] MEDS ORDERED: LORazepam 2 MG/ML VIAL ONE (12:13)
[2020-10-26 12:19] LABS: BACTERIA,URINE Moderate /HPF (None Seen); RBC,URINE 0-5 /HPF (0-5); SQUAMOUS EPITHELIAL CELL,UR FEW Squamous (<= Few)
[2020-10-26 12:20] LABS: ALBUMIN 3.4 g/dL (3.2-5.5); ALBUMIN/GLOBULIN RATIO 0.7 (1.0-2.2); BILIRUBIN,TOTAL 0.3 mg/dL (0.2-1.0); CALCIUM 8.7 mg/dL (8.5-10.3); CREATININE 0.8 mg/dL (0.4-1.0); TOTAL PROTEIN 8.2 g/dL (6.7-8.2)
--- NOTE | 2020-10-26 12:35 | CT Report ---
PROCEDURE: HEAD WO INDICATIONS: seizure TECHNIQUE: Noncontrast 4.5 mm thick angled axial sections acquired from the foramen magnum to the vertex. For r adiation dose reduction, the following was used: automated exposure control, adjustment of mA and/or kV according to patient size. COMPARISON: None. FINDINGS: Image quality: Excellent. CSF spaces: Basal cisterns are patent. No extra-axial fluid collections. Ex vacuo dilatation of the ventricles Brain: No midline shift. Diffuse, scattered nonspecific white matter signal changes, statistically represent chronic microvascular ischemic disease although differential includes neurodegenerative, in fectious/inflammatory, demyelinating etiologies among other possibilities. No intracranial masses or hemorrhage. Perkins-white matter interface is normal. Skull and face: Calvarium and visualized facial bones are intact, without suspicious lesions. Left orbital postsurgical changes. Sinuses: Visualized sinuses and mastoids are clear. IMPRESSION: No acute intracranial process. Reviewed by: Abdulkadir Valiente MD on 10/26/2020 12:34 PM PST Approved by: Abdulkadir Valiente MD on 10/26/2020 12:34 PM PST Station ID: [id number]
--- NOTE | 2020-10-26 15:38 | ED Physician Documentation ---
ED Addendum - Addendum Addendum: 10/26/20 15:37 Patient is being discharged back to [facility]. We were unable to get in contact with the family to transport back from the emergency department. Secondary to a history of seizures making taxi transport unsafe. Ultimately the patient will be sent via BLS transport
[2020-10-26 17:50] VITALS: BP 134/82
== END 2020-10-26 17:45 | disposition home or self-care (01) ==
LOC: EDUNIT# → ED 11:32
DX: N30.00 Acute cystitis without hematuria (principal); R56.9 Unspecified convulsions; I10 Essential (primary) hypertension; Z66 Do not resuscitate; G35 Multiple sclerosis
CPT/HCPCS: 36415; 51701; 80053; 81001; 81003; 83690; 85025; 87077; 87086; 87181; 99281

== ENCOUNTER 2020-10-26 17:50 | Outpatient (CLI) | payer MEDICARE, MEDICAID | END 2020-10-26 17:51 | disposition home or self-care (01) | LOC: EMS 17:50 | PROVIDERS: ATTEND Surgery | DX: R56.9 Unspecified convulsions (principal) | CPT/HCPCS: A0425; A0428 ==

== ENCOUNTER 2021-04-07 22:14 | Outpatient (CLI) | payer MEDICARE, MEDICAID | END 2021-04-07 22:15 | disposition critical access hospital (66) | LOC: EMS 22:14 | DX: R53.1 Weakness (principal) | CPT/HCPCS: A0425; A0429 ==

== ENCOUNTER 2021-04-07 22:31 | Emergency (ER) | payer MEDICARE, MEDICAID ==
[2021-04-07 23:28] LABS: BASOPHILS % (AUTO) 0.3 %; EOSINOPHILS % (AUTO) 0.3 %; HCT - HEMATOCRIT 31.9 % (37.0-47.0); HGB - HEMOGLOBIN 10.6 g/dL (12.0-16.0); LYMPHOCYTES % (AUTO) 18.5 %; MEAN CORPUSCULAR HEMOGLOBIN 29.5 pg (27.0-31.0); MEAN CORPUSCULAR HGB CONC 33.2 g/dL (32.0-36.0); MEAN CORPUSCULAR VOLUME 88.9 fL (81.0-99.0); MEAN PLATELET VOLUME 8.7 fL (7.9-10.8); MONOCYTES % (AUTO) 10.4 %; PLT - PLATELET COUNT 299 10^3/uL (130-450); RED BLOOD COUNT 3.59 10^6/uL (4.20-5.40); RED CELL DISTRIBUTION WIDTH 15.2 % (12.0-15.0); WHITE BLOOD COUNT 17.5 x10^3/uL (4.8-10.8)
[2021-04-07 23:34] LABS: ABNORMAL LYMPHS % (MANUAL) 0 %; BAND NEUTROPHILS % (MANUAL) 0 %
[2021-04-07 23:39] LABS: CREATININE 1.8 mg/dL (0.4-1.0)
[2021-04-07 23:46] LABS: CALCIUM 8.8 mg/dL (8.5-10.3); POTASSIUM 3.5 mmol/L (3.5-5.0)
[2021-04-07 23:59] LABS: DIFFERENTIAL COMMENT MANUAL DIFFERENTIAL; LYMPHOCYTES # (MANUAL) 3.7 10^3/uL (1.5-3.5); LYMPHOCYTES % (MANUAL) 21 %; MONOCYTES # (MANUAL) 1.9 10^3/uL (0.0-1.0); NEUTROPHILS # (MANUAL) 11.9 10^3/uL (1.5-6.6); PLATELET ESTIMATE, MANUAL NORMAL (130-450,000) (NORMAL); PLATELET MORPHOLOGY NORMAL APPEARANCE (NORMAL); RBC MORPHOLOGY (MULTIPLE) NORMAL APPEARANCE (NORMAL); WBC MORPHOLOGY (MULTIPLE) NORMAL APPEARANCE (NORMAL)
--- NOTE | 2021-04-08 00:07 | ED Physician Documentation ---
History of Present Illness - Stated complaint Stated Complaint: WEAKNESS - Chief complaint Chief Complaint: General - History obtained from History obtained from: Patient (limited HPI/ROS due to shaunna chawla answers (when I ask what is wrong today, she tell me read my chart, when I ask her to tell me she says just read the chart; I guess you dont listen very well. I ask her if she hurts anywhere, she says You dont seem to know anything, do you?), EMS - History of Present Illness Timing: Today - Additonal information Additional information: Patient is either unable or unwilling to contribute to HPI/ROS, with glib and sarcastic answers. 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 Psych: None Musculoskeletal: Osteoarthritis Derm: None - Past Surgical History Past Surgical History: Yes General: Appendectomy HEENT: Detached retina repair - Present Medications Home Medications: Ambulatory Orders Medication Instructions Recorded Confirmed Diclofenac Sodium Dr [Voltaren] 1 tab PO DAILY 10/26/20 04/07/21 Fluticasone [Flonase] 1 spray IN DAILY 10/26/20 04/07/21 Gabapentin [Neurontin] 200 mg PO DAILY 10/26/20 04/07/21 Levothyroxine Sodium [Synthroid] 1 tab PO DAILY 10/26/20 04/07/21 Omeprazole 1 tab PO DAILY 10/26/20 04/07/21 Oxybutynin [Ditropan] 10 mg PO DAILY 10/26/20 04/07/21 Rosuvastatin Calcium [Crestor] 1 tab PO DAILY 10/26/20 04/07/21 Valsartan [Diovan] 1 tab PO DAILY 10/26/20 04/07/21 Venlafaxine [Effexor] 1 tab PO DAILY 10/26/20 04/07/21 Acetaminophen [Tylenol] 325 mg PO DAILY PRN 04/07/21 04/07/21 Nystatin [Nystop] 1 applic TOP BID 04/07/21 04/07/21 Amox/Clav 875/125 [Augmentin 1 tablet PO Q12H 10 Days #20 tablet 04/08/21 875/125 Tab] - Allergies Allergies/Adverse Reactions: Allergies Allergy/AdvReac Type Severity Reaction Status Date / Time amlodipine Allergy Unknown Verified 04/07/21 22:37 iodine Allergy Unknown Verified 10/26/20 12:20 - Social History Does the pt smoke?: No Smoking Status: Never smoker Does the pt drink ETOH?: Yes Does the pt have substance abuse?: No - Immunizations Immunizations are current?: No Immunizations: TDAP >10years/unknown - POLST Patient has POLST: No PD ED PE NORMAL - Vitals Vital signs reviewed: Yes - General General: No acute distress, Well developed/nourished, Other (oriented x 1, unclear if she doesnt know time/place or just doesnt want to answer) - HEENT HEENT: Atraumatic, Other (left eye cataract) - Neck Neck: Supple, no meningeal sign - Cardiac Cardiac: RRR - Respiratory Respiratory: No respiratory distress, Clear bilaterally - Abdomen Abdomen: Soft, Non tender - Derm Derm: Normal color, Warm and dry, No rash - Extremities Extremities: No edema Results - Vitals Vitals: Oxygen O2 Source Room air - Labs Labs: Laboratory Tests 04/07/21 04/07/21 04/07/21 23:23 23:23 23:23 WBC 17.5 H RBC 3.59 L Hgb 10.6 L Hct 31.9 L MCV 88.9 MCH 29.5 MCHC 33.2 RDW 15.2 H Plt Count 299 MPV 8.7 Neut # (Auto) Not Reportable Lymph # (Auto) Not Reportable Crisp # (Auto) Not Reportable Eos # (Auto) Not Reportable Baso # (Auto) Not Reportable Absolute Nucleated RBC Not Reportable Total Counted 100 Band Neuts % (Manual) 0 Abnorm Lymph % (Manual) 0 Nucleated RBC % Not Reportable Neutrophils # (Manual) 11.9 H Lymphocytes # (Manual) 3.7 H Monocytes # (Manual) 1.9 H Eosinophils # (Manual) 0.0 Basophils # (Manual) 0.0 Differential Comment MANUAL DIFFERENTIAL WBC Morphology NORMAL APPEARANCE Platelet Estimate NORMAL (130-450,000) Platelet Morphology NORMAL APPEARANCE RBC Morph Micro Appear NORMAL APPEARANCE Sodium 129 L Potassium 3.5 Chloride 94 L Carbon Dioxide 23 Anion Gap 12.0 BUN 20 Creatinine 1.8 H Estimated GFR (MDRD) 27 L Glucose 130 H Lactic Acid 1.5 Calcium 8.8 Urine Color Urine Clarity Urine pH Ur Specific [place] Urine Protein Urine Glucose (UA) Urine Ketones Urine Occult Blood Urine Nitrite Urine Bilirubin Urine Urobilinogen Ur Leukocyte Esterase Urine RBC Urine WBC Ur Squamous Epith Cells Urine Bacteria Ur Microscopic Review Urine Culture Comments 04/08/21 01:10 WBC RBC Hgb Hct MCV MCH MCHC RDW Plt Count MPV Neut # (Auto) Lymph # (Auto) [place] # (Auto) Eos # (Auto) Baso # (Auto) Absolute Nucleated RBC Total Counted Band Neuts % (Manual) Abnorm Lymph % (Manual) Nucleated RBC % Neutrophils # (Manual) Lymphocytes # (Manual) Monocytes # (Manual) Eosinophils # (Manual) Basophils # (Manual) Differential Comment WBC Morphology Platelet Estimate Platelet Morphology RBC Morph Micro Appear Sodium Potassium Chloride Carbon Dioxide Anion Gap BUN Creatinine Estimated GFR (MDRD) Glucose Lactic Acid Calcium Urine Color YELLOW Urine Clarity CLOUDY Urine pH 8.0 H Ur Specific [place] 1.020 Urine Protein 100 H Urine Glucose (UA) NEGATIVE Urine Ketones TRACE Urine Occult Blood LARGE H Urine Nitrite NEGATIVE Urine Bilirubin NEGATIVE Urine Urobilinogen 0.2 (NORMAL) Ur Leukocyte Esterase MODERATE H Urine RBC 11-25 H Urine WBC 11-25 H Ur Squamous Epith Cells NONE SEEN Urine Bacteria Many H Ur Microscopic Review INDICATED Urine Culture Comments INDICATED PD MEDICAL DECISION MAKING - ED course Complexity details: considered differential, d/w patient ED course: UA c/w UTI and will treat with augmentin (ceftriaxone 1gm IV given in ED) Departure - Departure Disposition: 01 Home, Self Care Clinical Impression: Urinary tract infection Qualifiers: Urinary tract infection type: acute cystitis Hematuria presence: with hematuria Qualified Code(s): N30.01 - Acute cystitis with hematuria Condition: Good Instructions: ED UTI Cystitis Female, ED Weakness UKO Follow-Up: Ridge Kline MD [Primary Care Provider] - Within 3 Days Prescriptions: Amox/Clav 875/125 [Augmentin 875/125 Tab] 1 tablet PO Q12H 10 Days #20 tablet Discharge Date/Time: 04/08/21 04:00
[2021-04-08] MEDS: SODIUM CHLORIDE 0.9% 1,000 ML IV STA (00:37)
[2021-04-08 01:34] LABS: BILIRUBIN,URINE NEGATIVE (NEGATIVE); GLUCOSE, URINE (UA) NEGATIVE (NEGATIVE); KETONES,URINE (UA) TRACE mg/dL (NEGATIVE); LEUKOCYTE ESTERASE, URINE MODERATE (NEGATIVE); NITRITE,URINE NEGATIVE (NEGATIVE); OCCULT BLOOD,URINE LARGE (NEGATIVE); PROTEIN,URINE 100 mg/dL (NEGATIVE); UROBILINOGEN,URINE 0.2 (NORMAL) E.U./dL (NORMAL)
[2021-04-08 01:36] LABS: CLARITY,URINE CLOUDY (CLEAR)
[2021-04-08 01:37] LABS: BACTERIA,URINE Many /HPF (None Seen); SQUAMOUS EPITHELIAL CELL,UR NONE SEEN (<= Few)
[2021-04-08 02:19] VITALS: BP 139/71
[2021-04-08] MEDS ORDERED: cefTRIAXone 1 GM VIAL ONE (03:01)
[2021-04-08] MEDS: cefTRIAXone 1 GM in SODIUM CHLORIDE 0.9% MINIBAG 100 ML IV STA (03:05)
== END 2021-04-08 04:00 | disposition home or self-care (01) ==
LOC: EDUNIT# → ED 22:31
DX: N30.01 Acute cystitis with hematuria (principal); G35 Multiple sclerosis; H26.9 Unspecified cataract; I10 Essential (primary) hypertension
CPT/HCPCS: 36415; 51701; 80048; 81001; 81003; 83605; 85025; 87077; 87086; 87181; 99283

== ENCOUNTER 2021-04-08 04:16 | Outpatient (CLI) | payer MEDICARE, MEDICAID | END 2021-04-08 04:17 | disposition home or self-care (01) | LOC: EMS 04:16 | PROVIDERS: ATTEND Emergency Medicine | DX: N39.0 Urinary tract infection, site not specified (principal); R41.0 Disorientation, unspecified; Z74.01 Bed confinement status | CPT/HCPCS: A0425; A0428 ==

== ENCOUNTER 2021-05-04 09:49 | Outpatient (CLI) | payer MEDICARE, MEDICAID | END 2021-05-04 09:50 | disposition critical access hospital (66) | LOC: EMS 09:49 | DX: R41.0 Disorientation, unspecified (principal); R33.9 Retention of urine, unspecified | CPT/HCPCS: A0425; A0429 ==

== ENCOUNTER 2021-05-04 10:07 | Inpatient (IN) | payer MEDICARE, MEDICAID ==
[2021-05-04] MEDS ORDERED: SODIUM CHLORIDE 0.9% 1,000 ML IV STA ×2 (10:14→11:22)
--- NOTE | 2021-05-04 10:17 | ED Physician Documentation ---
History of Present Illness - Stated complaint Stated Complaint: WEAKNESS - History obtained from History obtained from: Patient, EMS - Additonal information Additional information: Patient comes emergency department for chief complaint per medics of decreased appetite, decreased urine output, and "not quite herself". The patient resides at an assisted living facility and staff have felt as though the patient has not quite been her normal self lately. It is not clear exactly how many days this is been going on. The patient herself denies any symptoms. She states she feels "fine" and the reason that she is not eating as much is is that she would like to be given more milk which she does like. Patient denies any dysuria. No pain. No fevers or chills. No cough. No shortness of breath. She does not feel any weaker than usual, she does not think. According to paperwork that arrived with her, the patient has a history of multiple sclerosis, among other elements. She is currently DNR with comfort measures only. The patient denies any other complaints at this time. Review of Systems Ten Systems: 10 systems reviewed and negative Constitutional: reports: Reviewed and negative Eyes: reports: Reviewed and negative Ears: reports: Reviewed and negative Nose: reports: Reviewed and negative Throat: reports: Reviewed and negative Cardiac: reports: Reviewed and negative Respiratory: reports: Reviewed and negative GI: reports: Reviewed and negative : reports: Reviewed and negative Skin: reports: Reviewed and negative Musculoskeletal: reports: Reviewed and negative Neurologic: reports: Reviewed and negative Psychiatric: reports: Reviewed and negative Endocrine: reports: Reviewed and negative Immunocompromised: reports: Reviewed and negative PD PAST MEDICAL HISTORY - Past Medical History Cardiovascular: Hypertension Respiratory: None Neuro: Multiple sclerosis Endocrine/Autoimmune: None 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 Musculoskeletal: Osteoarthritis Derm: None - Past Surgical History Past Surgical History: Yes General: Appendectomy HEENT: Detached retina repair - Present Medications Home Medications: Ambulatory Orders Medication Instructions Recorded Confirmed Diclofenac Sodium Dr [Voltaren] 75 mg PO DAILY 10/26/20 05/04/21 Fluticasone [Flonase] 1 spray IN DAILY 10/26/20 05/04/21 Gabapentin [Neurontin] 200 mg PO DAILY 10/26/20 05/04/21 Levothyroxine Sodium [Synthroid] 50 mcg PO DAILY 10/26/20 05/04/21 Omeprazole 40 mg PO DAILY 10/26/20 05/04/21 Oxybutynin [Ditropan] 10 mg PO DAILY 10/26/20 05/04/21 Rosuvastatin Calcium [Crestor] 20 mg PO DAILY 10/26/20 05/04/21 Valsartan [Diovan] 80 mg PO DAILY 10/26/20 05/04/21 Acetaminophen [Tylenol] 325 mg PO DAILY PRN 04/07/21 05/04/21 Nystatin [Nystop] 1 applic TOP BID 04/07/21 05/04/21 Amox/Clav 875/125 [Augmentin 1 tablet PO Q12H 10 Days #20 tablet 04/08/21 875/125 Tab] Venlafaxine ER [Effexor ER] 37.5 mg PO DAILY 05/04/21 05/04/21 - Allergies Allergies/Adverse Reactions: Allergies Allergy/AdvReac Type Severity Reaction Status Date / Time amlodipine Allergy Unknown Verified 05/04/21 10:24 iodine Allergy Unknown Verified 05/04/21 10:24 - Social History Does the pt smoke?: No Smoking Status: Never smoker Does the pt drink ETOH?: Yes Does the pt have substance abuse?: No - Immunizations Immunizations are current?: No Immunizations: TDAP >10years/unknown - POLST Patient has POLST: No PD ED PE NORMAL - Vitals Vital signs reviewed: Yes - General General: Alert and oriented X 3, No acute distress, Well developed/nourished - HEENT HEENT: Atraumatic, PERRL, EOMI, Moist mucous membranes - Neck Neck: Supple, no meningeal sign - Cardiac Cardiac: RRR, No murmur - Respiratory Respiratory: No respiratory distress, Clear bilaterally - Abdomen Abdomen: Soft, Non tender, Non distended - Derm Derm: Normal color, Warm and dry, No rash - Extremities Extremities: No deformity, No edema, No calf tenderness / cord - Neuro Neuro: Alert and oriented X 3, 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, Normal speech - Psych Psych: Normal mood, Normal affect Results - Vitals Vitals: Vital Signs - 24 hr 05/04/21 05/04/21 05/04/21 10:07 10:34 11:30 Temperature 36.3 C L 36.6 C Heart Rate 89 84 77 Respiratory 16 16 16 Rate Blood Pressure 115/104 H 115/104 H 133/63 H O2 Saturation 97 99 98 05/04/21 05/04/21 05/04/21 12:00 12:24 13:00 Temperature 97.6 C H Heart Rate 77 73 73 Respiratory 18 16 Rate Blood Pressure 130/65 132/69 H 144/70 H O2 Saturation 97 98 Oxygen O2 Source Room air - EKG (time done) 1039 Rate: Rate (enter#) (86) Rhythm: NSR [place]: Normal Intervals: Normal [place] QRS: Normal Ischemia: Normal ST segments. No: T wave inversion Compare to prior EKG: Old EKG unavailable Computer interpretation: Disagree with computer (Computer states "consider anterior infarct". No evidence of infarct in anterior leads.) - Labs Labs: Laboratory Tests 05/04/21 05/04/21 05/04/21 10:35 10:35 11:04 WBC 8.8 RBC 3.76 L Hgb 10.8 L Hct 32.2 L MCV 85.6 MCH 28.7 MCHC 33.5 RDW 14.7 Plt Count 240 MPV 9.4 Neut # (Auto) 5.0 Lymph # (Auto) 2.8 [place] # (Auto) 0.8 Eos # (Auto) 0.1 Baso # (Auto) 0.0 Absolute Nucleated RBC 0.00 Nucleated RBC % 0.0 Sodium 129 L Potassium 4.4 Chloride 93 L Carbon Dioxide 18 L Anion Gap 18.0 H BUN 111 H* Creatinine 9.1 H* Estimated GFR (MDRD) 4 L Glucose 116 H Calcium 9.2 Total Bilirubin 0.7 AST 15 ALT 17 Alkaline Phosphatase 59 Total Protein 9.8 H Albumin 3.2 Globulin 6.6 H Albumin/Globulin Ratio 0.5 L Lipase 49 Urine Color YELLOW Urine Clarity CLOUDY Urine pH 6.0 Ur Specific [place] 1.020 Urine Protein 100 H Urine Glucose (UA) NEGATIVE Urine Ketones NEGATIVE Urine Occult Blood MODERATE H Urine Nitrite NEGATIVE Urine Bilirubin NEGATIVE Urine Urobilinogen 0.2 (NORMAL) Ur Leukocyte Esterase LARGE H Urine RBC 6-10 H Urine WBC >25 H Urine WBC Clumps PRESENT Ur Squamous Epith Cells RARE Squamous Urine Bacteria Moderate H Ur Microscopic Review INDICATED Urine Culture Comments INDICATED 05/04/21 12:51 WBC RBC Hgb Hct MCV MCH MCHC RDW Plt Count MPV Neut # (Auto) Lymph # (Auto) [place] # (Auto) Eos # (Auto) Baso # (Auto) Absolute Nucleated RBC Nucleated RBC % Sodium 131 L Potassium 4.4 Chloride 100 L Carbon Dioxide 17 L Anion Gap 14.0 H BUN 102 H* Creatinine 8.4 H* Estimated GFR (MDRD) 5 L Glucose 91 Calcium 8.2 L Total Bilirubin AST ALT Alkaline Phosphatase Total Protein Albumin Globulin Albumin/Globulin Ratio Lipase Urine Color Urine Clarity Urine pH Ur Specific [place] Urine Protein Urine Glucose (UA) Urine Ketones Urine Occult Blood Urine Nitrite Urine Bilirubin Urine Urobilinogen Ur Leukocyte Esterase Urine RBC Urine WBC Urine WBC Clumps Ur Squamous Epith Cells Urine Bacteria Ur Microscopic Review Urine Culture Comments PD MEDICAL DECISION MAKING - ED course Complexity details: reviewed results, re-evaluated patient, considered differential, d/w patient ED course: The patient had no complaints, but given the concerns of the staff, she was worked up with labs, EKG and urinalysis. She was found to be in acute renal failure, with BUN over 100 and creatinine of over 9. I discussed with the patient the findings and she stated that she knows what dialysis is and that being comfort measures only she really does not want dialysis. The patient was alert and completely oriented and very clear on her preferences. I spoke with Dr. Garg who is on-call for hospitalist service, and he stated that he would be happy to admit the patient to his service but would like to have her get a couple of liters of IV fluid in the in the emergency department first and see if it changed her numbers at all. That way, if the patient's numbers did not change, we could have a conversation about dialysis one more time. This was done and patient did significantly drop both her BUN and creatinine. Dr. Garg did go and speak with her and have another conversation about dialysis and patient is clear that she did not want it. As such patient was admitted to the hospital for dehydration and acute renal failure. Her potassium was not elevated. She did produce some urine in the emergency department and was found to have a urinary tract infection, as well. She was treated for this with Rocephin. Departure - Departure Disposition: [facility] DC/Xfer Clinical Impression: Acute renal failure Qualifiers: Acute renal failure type: unspecified Qualified Code(s): N17.9 - Acute kidney failure, unspecified Condition: Serious Discharge Date/Time: 05/04/21 14:14
[2021-05-04 10:40] LABS: BASOPHILS % (AUTO) 0.5 %; EOSINOPHILS # (AUTO) 0.1 10^3/uL (0.0-0.7); EOSINOPHILS % (AUTO) 1.1 %; HCT - HEMATOCRIT 32.2 % (37.0-47.0); HGB - HEMOGLOBIN 10.8 g/dL (12.0-16.0); LYMPHOCYTES # (AUTO) 2.8 10^3/uL (1.5-3.5); LYMPHOCYTES % (AUTO) 31.7 %; MEAN CORPUSCULAR HEMOGLOBIN 28.7 pg (27.0-31.0); MEAN CORPUSCULAR HGB CONC 33.5 g/dL (32.0-36.0); MEAN CORPUSCULAR VOLUME 85.6 fL (81.0-99.0); MEAN PLATELET VOLUME 9.4 fL (7.9-10.8); MONOCYTES # (AUTO) 0.8 10^3/uL (0.0-1.0); MONOCYTES % (AUTO) 9.1 %; NEUTROPHILS % (AUTO) 56.8 %; PLT - PLATELET COUNT 240 10^3/uL (130-450); RED BLOOD COUNT 3.76 10^6/uL (4.20-5.40); RED CELL DISTRIBUTION WIDTH 14.7 % (12.0-15.0); WHITE BLOOD COUNT 8.8 x10^3/uL (4.8-10.8)
[2021-05-04 11:06] LABS: ALBUMIN 3.2 g/dL (3.2-5.5); ALBUMIN/GLOBULIN RATIO 0.5 (1.0-2.2); BILIRUBIN,TOTAL 0.7 mg/dL (0.2-1.0); CALCIUM 9.2 mg/dL (8.5-10.3); POTASSIUM 4.4 mmol/L (3.5-5.0); TOTAL PROTEIN 9.8 g/dL (6.7-8.2)
[2021-05-04 11:07] LABS: CREATININE 9.1 mg/dL (0.4-1.0)
[2021-05-04 11:20] LABS: BILIRUBIN,URINE NEGATIVE (NEGATIVE); GLUCOSE, URINE (UA) NEGATIVE (NEGATIVE); KETONES,URINE (UA) NEGATIVE (NEGATIVE); LEUKOCYTE ESTERASE, URINE LARGE (NEGATIVE); NITRITE,URINE NEGATIVE (NEGATIVE); OCCULT BLOOD,URINE MODERATE (NEGATIVE); PROTEIN,URINE 100 mg/dL (NEGATIVE); UROBILINOGEN,URINE 0.2 (NORMAL) E.U./dL (NORMAL)
[2021-05-04 11:26] LABS: BACTERIA,URINE Moderate /HPF (None Seen); CLARITY,URINE CLOUDY (CLEAR); SQUAMOUS EPITHELIAL CELL,UR RARE Squamous (<= Few); WBC CLUMPS,URINE PRESENT; WBC,URINE >25 /HPF (0-5)
[2021-05-04 13:17] LABS: CALCIUM 8.2 mg/dL (8.5-10.3); POTASSIUM 4.4 mmol/L (3.5-5.0)
[2021-05-04 13:21] LABS: CREATININE 8.4 mg/dL (0.4-1.0)
[2021-05-04] MEDS ORDERED: cefTRIAXone 2 GM in SODIUM CHLORIDE 0.9% MINIBAG 100 ML IV STA (13:22)
[2021-05-04] MEDS ORDERED: ONDANSETRON 4 MG/2 ML VIAL IVP PRN (13:23)
[2021-05-04] MEDS ORDERED: ONDANSETRON ODT 4 MG TABLET TL PRN (13:23)
[2021-05-04] MEDS ORDERED: SODIUM CHLORIDE FLUSH 0.9% 10 ML SYRINGE IVP PRN (13:23)
[2021-05-04] MEDS ORDERED: ACETAMINOPHEN 325 MG TABLET PO PRN (13:23)
--- NOTE | 2021-05-04 13:28 | HISTORY & PHYSICAL EXAMINATION ---
Chief Complaint - Chief Complaint Chief Complaint: I don't know why I'm here History of Present Illness - Admitted From Admitted From:: [facility] - History Obtained From Records Reviewed: Yes History obtained from: Patient, ER Physician, EMR Exam Limitations: History from the patient is limited as she does appear to be altered. - History of Present Illness HPI Comment/Other: This is a 76-year-old female with a past medical history significant for hypertension, hypothyroidism who presents today from [facility] due to decreased oral intake and urine output. Most of the history is obtained from the ER physician and EMR as the patient does appear somewhat altered. The patient tells me that she feels fine and she is not sure why she is here at the hospital. She does admit to decreased oral intake over the past week. She states she has has no appetite. She denies feeling nauseous or having any emesis. She reports no abdominal pain, chest pain, dyspnea. She believes that she has been urinating okay but staff at [facility] noted she has had decreased urine output. The patient reports no dysuria, hematuria to her knowledge. She reports taking her medications as usually prescribed. In the emergency department, she was noted to be afebrile with heart rate in the 80s. She was normotensive. Labs were significant for a BUN of 111 and a creatinine of 9.1. The patient has a POLST form with her that states she is a DNR with a focus on comfort. The patient has made it quite clear to the emergency department physician and myself that she does not want hemodialysis and she is a DNR. Given the above findings, medicine was consulted for admission. 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 Living arrangement: alf Social History Notes: She reports living at [facility] since 2019. She denies a history of smoking or alcohol use. - POLST Patient has POLST: No Meds/Allgy - Home Medications Home Medications: Ambulatory Orders Medication Instructions Recorded Confirmed Diclofenac Sodium Dr [Voltaren] 75 mg PO DAILY 10/26/20 05/04/21 Fluticasone [Flonase] 1 spray IN DAILY 10/26/20 05/04/21 Gabapentin [Neurontin] 200 mg PO DAILY 10/26/20 05/04/21 Levothyroxine Sodium [Synthroid] 50 mcg PO DAILY 10/26/20 05/04/21 Omeprazole 40 mg PO DAILY 10/26/20 05/04/21 Oxybutynin [Ditropan] 10 mg PO DAILY 10/26/20 05/04/21 Rosuvastatin Calcium [Crestor] 20 mg PO DAILY 10/26/20 05/04/21 Valsartan [Diovan] 80 mg PO DAILY 10/26/20 05/04/21 Acetaminophen [Tylenol] 325 mg PO DAILY PRN 04/07/21 05/04/21 Nystatin [Nystop] 1 applic TOP BID 04/07/21 05/04/21 Amox/Clav 875/125 [Augmentin 1 tablet PO Q12H 10 Days #20 tablet 04/08/21 875/125 Tab] Venlafaxine ER [Effexor ER] 37.5 mg PO DAILY 05/04/21 05/04/21 - Allergies Allergies/Adverse Reactions: Allergies Allergy/AdvReac Type Severity Reaction Status Date / Time amlodipine Allergy Unknown Verified 05/04/21 10:24 iodine Allergy Unknown Verified 05/04/21 10:24 Review of Systems - Constitutional Constitutional: reports: Poor appetite. denies: Fever, Chills - Eyes Eyes: reports: Vision loss - Cardiovascular Cariovascular: denies: Chest pain, Edema, Exertional dyspnea, Decr. exercise tolerance - Respiratory Respiratory: denies: Cough, SOB at rest, SOB with exertion - Gastrointestinal Gastrointestinal: reports: Poor appetite. denies: Abdominal pain, Nausea, Vomiting - Genitourinary Genitourinary: denies: Dysuria, Urgency, Hematuria - Integumentary Integumentary: denies: Rash - Neurological Neurological: denies: General weakness, Focal weakness - Endocrine Endocrine: denies: Polyuria - All Other Systems All Other Systems: reports: Other (Review of systems is limited due to her altered mental status and not sure how reliable it is.) Prior Level of Functionality: She resides at [facility]. She tells me she ambulates with a wheelchair at baseline. Exam - Vital Signs Reviewed Vital Signs: Yes Vital Signs: Vital Signs x48h Temp Pulse Resp BP Pulse Ox 05/04/21 12:24 97.6 C H 73 18 132/69 H 97 05/04/21 10:34 36.6 C 84 16 115/104 H 99 05/04/21 10:07 36.3 C L 89 16 115/104 H 97 - Physical Exam General Appearance: positive: No acute distress, Alert Eyes Bilateral: positive: Conjunctivae nml, Other (Left eye is opacified.) ENT: positive: Dry mucous membranes. negative: No signs of dehydration Neck: positive: Nml inspection Respiratory: positive: No respiratory distress. negative: Wheezes, Rales Cardiovascular: positive: Regular rate & rhythm. negative: Tachycardia, Systolic murmur Abdomen: positive: Non-tender, No distention. negative: Tenderness Skin: positive: Warm, Dry Extremities: positive: No pedal edema Neurologic/Psychiatric: positive: Disoriented to time, Other (No focal deficits.). negative: Disoriented to person, Disoriented to place Conclusion/Plan - Problem List (1) Acute renal failure Conclusion/Plan: This appears to be prerenal injury given her lack of p.o. intake and the fact that she appears dehydrated. Her creatinine is she was greater than 9 and her BUN greater than 110. She has shown improvement to IV fluids as her creatinine is now in the 8's. Our plan will be to hydrate her with IV lactated Ringer's. Avoid nephrotoxins and we will hold her home valsartan and p.o. Voltaren. We will check a renal ultrasound to evaluate for obstruction. Check a urine sodium. The patient has made it quite clear that she does not want hemodialysis but I am hopeful that she will respond well to IV fluids. Qualifiers: Acute renal failure type: unspecified Qualified Code(s): N17.9 - Acute kidney failure, unspecified (2) Altered mental status Conclusion/Plan: It appears she is somewhat disoriented and altered which is likely related to her renal failure and elevated BUN. She does not have any obvious focal deficits on exam to suggest a stroke. She is oriented to self, location and year but not to month. I suspect her mentation will improve as we hydrate her with IV fluids. We will avoid sedatives. Delirium precautions. Qualifiers: Altered mental status type: disorientation Qualified Code(s): R41.0 - Disorientation, unspecified (3) Failure to thrive Conclusion/Plan: She has had decreased oral intake and appetite now over the past few weeks evident by the prior ER visit as well for weakness. She now has acute renal failure secondary to this. Her elevated BUN may contributing to her decreased appetite. We will see how she does after IV hydration and encourage her to eat as tolerated. We will also start her on Ensure 3 times daily with meals. Nutrition consult. Qualifiers: Failure to thrive age range: in adult Qualified Code(s): R62.7 - Adult fail ure to thrive (4) Urinary tract infection Conclusion/Plan: Her urinalysis revealed pyuria, leukocyte esterase, and moderate bacteria. She reports no symptoms but is unclear how accurate her history is given her confusion. We will treat her empirically with IV ceftriaxone. Qualifiers: Urinary tract infection type: acute cystitis Hematuria presence: with hematuria Qualified Code(s): N30.01 - Acute cystitis with hematuria (5) Hypertension Conclusion/Plan: She is currently normotensive. We will hold her home valsartan given the acute kidney injury. (6) Hypothyroidism Conclusion/Plan: We will continue her home Synthroid. Check a TSH. - Lab Results Lab results reviewed: Yes Kemal Bones: 05/04/21 10:35 05/04/21 12:51 Core Measures - Anticipated LOS I expect patient to be DC'd or transferred within 96 hours.: Yes - Issues Hospital Issues and Management Plan: 76-year-old female presents with decreased oral intake and decreased urine output found to have acute renal failure. We will admit for IV hydration. Patient has made it quite clear that she does not want dialysis. - DVT/VTE - Prophylaxis VTE/DVT Device ordered at admit?: Yes VTE/DVT Prophylaxis med ordered at admit?: Yes
--- NOTE | 2021-05-04 14:24 | PHARMACY PROGRESS NOTE ---
- Best Possible Medication History Admit Date and Time: 05/04/21 1323 Processed by: Pharmacy Medication History completed: Yes Secondary Source(s): Pharmacy records, Insurance records, Facility MAR as ONLY source As the person ultimately responsible for medication therapy, providers are able to order a medication from an existing home medication list in [facility] via the "Reconcile Routine" prior to Confirmation of that medication by it desktop support specialist. Such practice is discouraged except when the physician, in their clinical judgment, deems that a medical need exists for a medication without regard to previous use.
[2021-05-04] MEDS: LACTATED RINGERS 1,000 ML IV SCH ×2 (14:53→21:58)
[2021-05-04 15:04] LABS: CORONAVIRUS 229E-RESP PCR NOT DETECTED; CORONAVIRUS HKU1-RESP PCR NOT DETECTED; CORONAVIRUS NL63-RESP PCR NOT DETECTED; CORONAVIRUS OC43-RESP PCR NOT DETECTED; HUMAN METAPNEUMOVIRUS NOT DETECTED; INFLUENZA A- RESP PCR PANEL NOT DETECTED; RHINOVIRUS/ENTEROVIRUS NOT DETECTED; SARS-CoV-2 -RESP PCR PANEL NOT DETECTED
[2021-05-04 15:05] LABS: B. PARAPERTUSSIS- RESP PCR PAN NOT DETECTED; B. PERTUSSIS- RESP PCR PANEL NOT DETECTED; C. PNEUMONIAE- RESP PCR PANEL NOT DETECTED; INFLUENZA B - RESP PCR PANEL NOT DETECTED; M. PNEUMONIAE- RESP PCR PANEL NOT DETECTED; PARAINFLUENZA VIRUS 1 NOT DETECTED; PARAINFLUENZA VIRUS 2 NOT DETECTED; PARAINFLUENZA VIRUS 3 NOT DETECTED; PARAINFLUENZA VIRUS 4 NOT DETECTED; RSV- RESP PCR PANEL NOT DETECTED
--- NOTE | 2021-05-04 16:04 | Ultrasound Report ---
PROCEDURE: Retroperitoneal INDICATIONS: Acute renal failure. Decreased urine output. TECHNIQUE: Real-time scanning was performed of the kidneys and bladder, with image documentation. COMPARISON: Correlation is made with abdomen pelvis CT, 03/18/2020 FINDINGS: Kidneys: Kidneys are normal in size. Right kidney measures 10.6 cm long; left kidney measures 10.3 cm long. Right renal cortical thickness is 1.5 cm; left renal cortical thickness is 1.5 cm. No sharonda d masses or nephrolithiasis. Mild right-sided hydronephrosis is seen. Bladder: Layering, echogenic debris can be seen within the bladder. The prevoid bladder volume is 213 cc. Despite his bladder volume, the patient was unable to successfully void, with only a small amoun t of urine weighted. Both ureteral jets can be seen. IMPRESSION: Mild right kidney hydronephrosis, which is likely similar to the prior CT. Apparent urinary retention, with the patient unable to successfully, properly void, despite a bladder volume of greater than 200 cc. Echogenic debris is seen within the bladder, which is consistent with UTI. Reviewed by: Kane Irving MD on 05/04/2021 3:02 PM ANAND Approved by: Kane Irving MD on 05/04/2021 3:02 PM ANAND Station ID: [id number]
[2021-05-04] MEDS: SODIUM CHLORIDE FLUSH 0.9% 10 ML SYRINGE IVP SCH ×2 (16:26→23:48)
[2021-05-04] MEDS: HEPARIN 5,000 UNIT/ML VIAL SUBQ SCH (20:16)
[2021-05-05] MEDS: LACTATED RINGERS 1,000 ML IV SCH (04:43)
[2021-05-05 05:39] LABS: BASOPHILS % (AUTO) 0.2 %; EOSINOPHILS # (AUTO) 0.1 10^3/uL (0.0-0.7); EOSINOPHILS % (AUTO) 0.6 %; HGB - HEMOGLOBIN 9.7 g/dL (12.0-16.0); LYMPHOCYTES # (AUTO) 1.9 10^3/uL (1.5-3.5); LYMPHOCYTES % (AUTO) 21.5 %; MEAN CORPUSCULAR HEMOGLOBIN 28.7 pg (27.0-31.0); MEAN CORPUSCULAR HGB CONC 33.4 g/dL (32.0-36.0); MEAN CORPUSCULAR VOLUME 85.8 fL (81.0-99.0); MEAN PLATELET VOLUME 9.9 fL (7.9-10.8); MONOCYTES # (AUTO) 0.8 10^3/uL (0.0-1.0); MONOCYTES % (AUTO) 9.1 %; NEUTROPHILS % (AUTO) 67.8 %; PLT - PLATELET COUNT 203 10^3/uL (130-450); RED BLOOD COUNT 3.38 10^6/uL (4.20-5.40); RED CELL DISTRIBUTION WIDTH 14.6 % (12.0-15.0); WHITE BLOOD COUNT 8.9 x10^3/uL (4.8-10.8)
[2021-05-05 06:05] LABS: CARBON DIOXIDE - CO2 18 mmol/L (21-32); CHLORIDE 97 mmol/L (101-111); GFR - MDRD 5 (>89); POTASSIUM 4.7 mmol/L (3.5-5.0); SODIUM 128 mmol/L (135-145)
[2021-05-05 06:10] LABS: CALCIUM 8.5 mg/dL (8.5-10.3); GLUCOSE 96 mg/dL (70-100)
[2021-05-05 06:14] LABS: BUN - BLOOD UREA NITROGEN 96 mg/dL (6-20); CREATININE 8.4 mg/dL (0.4-1.0); PHOSPHORUS < 1.0 mg/dL (2.5-4.6)
--- NOTE | 2021-05-05 07:42 | PROVIDER PROGRESS NOTE ---
Subjective - Prog Note Date Prog Note Date: 05/05/21 - Subjective Subjective: She continues to have no complaints. Denies any chest pain, dyspnea, abdominal pain. Current Medications - Current Medications Current Medications: Active Medications Acetaminophen (Acetaminophen 325 Mg Tablet) 650 mg PO Q4HR PRN PRN Reason: Pain 1 to 4 Heparin Sodium (Porcine) (Heparin 5,000 Unit/Ml Vial) 5,000 unit SUBQ BID [facility] Last Admin: 05/05/21 09:00 Dose: 5,000 unit Documented by: Ceftriaxone Sodium 1 gm/ (Sodium Chloride) 100 mls @ 200 mls/hr IV DAILY [facility] Last Infusion: 05/05/21 09:10 Dose: Infused Documented by: Sodium Phosphate 20 mmol/ (Sodium Chloride) 256.6667 mls @ 41 mls/hr IV ONCE ONE Stop: 05/05/21 14:15 Last Admin: 05/05/21 09:51 Dose: 41 mls/hr Documented by: Sodium Chloride (Normal Saline 0.9%) 1,000 mls @ 100 mls/hr IV .Q10H [facility] Last Infusion: 05/05/21 09:10 Dose: 100 mls/hr Documented by: Ondansetron HCl (Ondansetron Odt 4 Mg Tablet) 4 mg TL Q6HR PRN PRN Reason: Nausea / Vomiting Ondansetron HCl (Ondansetron 4 Mg/2 Ml Vial) 4 mg IVP Q6HR PRN PRN Reason: Nausea / Vomiting Sodium Chloride (Sodium Chloride Flush 0.9% 10 Ml Syringe) 10 ml IVP PRN PRN PRN Reason: NEEDED PER PROVIDER ORDERS Sodium Chloride (Sodium Chloride Flush 0.9% 10 Ml Syringe) 10 ml IVP 0100,0900,1700 [facility] Last Admin: 05/05/21 08:39 Dose: 10 ml Documented by: Diclofenac Sodium Dr [Voltaren] 75 mg PO DAILY 10/26/20 Fluticasone [Flonase] 1 spray IN DAILY 10/26/20 Gabapentin [Neurontin] 200 mg PO DAILY 10/26/20 Levothyroxine Sodium [Synthroid] 50 mcg PO DAILY 10/26/20 Omeprazole 40 mg PO DAILY 10/26/20 Oxybutynin [Ditropan] 10 mg PO DAILY 10/26/20 Rosuvastatin Calcium [Crestor] 20 mg PO DAILY 10/26/20 Valsartan [Diovan] 80 mg PO DAILY 10/26/20 Acetaminophen [Tylenol] 325 mg PO DAILY PRN 04/07/21 Nystatin [Nystop] 1 applic TOP BID 04/07/21 Venlafaxine ER [Effexor ER] 37.5 mg PO DAILY 05/04/21 Objective - Vital Signs/Intake & Output Reviewed Vital Signs: Yes Vital Signs: Vital Signs x48h Temp Pulse Resp BP Pulse Ox 05/05/21 05:00 36.8 C 85 20 149/81 H 96 Intake & Output: Intake & Output 05/02/21 05/03/21 05/04/21 05/05/21 23:59 23:59 23:59 23:59 Intake Total 3340.000 1000 Output Total 50 400 Balance 3290.000 600 - Objective General Appearance: positive: No acute distress, Alert Eyes Bilateral: positive: Other (Left eye is opacified.) ENT: positive: Dry mucous membranes Neck: positive: Nml inspection Respiratory: positive: No respiratory distress. negative: Wheezes, Rales Cardiovascular: positive: Regular rate & rhythm. negative: Tachycardia Abdomen: positive: Non-tender, No distention. negative: Tenderness Skin: positive: Warm, Dry Extremities: positive: No pedal edema Neurologic/Psychiatric: positive: Disoriented to time (Oriented to year but not month). negative: Disoriented to person, Disoriented to place - Lab Results Fish Bones: 05/05/21 05:20 05/05/21 05:20 Other Labs: Lab Results x24hrs 05/05/21 05/05/21 05/05/21 Range/Units 05:20 05:20 05:20 WBC 8.9 (4.8-10.8) x10^3/uL RBC 3.38 L (4.20-5.40) 10^6/uL Hgb 9.7 L (12.0-16.0) g/dL Hct 29.0 L (37.0-47.0) % MCV 85.8 (81.0-99.0) fL MCH 28.7 (27.0-31.0) pg MCHC 33.4 (32.0-36.0) g/dL RDW 14.6 (12.0-15.0) % Plt Count 203 (130-450) 10^3/uL MPV 9.9 (7.9-10.8) fL Neut # (Auto) 6.0 (1.5-6.6) 10^3/uL Lymph # (Auto) 1.9 (1.5-3.5) 10^3/uL [place] # (Auto) 0.8 (0.0-1.0) 10^3/uL Eos # (Auto) 0.1 (0.0-0.7) 10^3/uL Baso # (Auto) 0.0 (0.0-0.1) 10^3/uL Absolute Nucleated RBC 0.00 x10^3/uL Nucleated RBC % 0.0 /100WBC Sodium 128 L (135-145) mmol/L Potassium 4.7 (3.5-5.0) mmol/L Chloride 97 L (101-111) mmol/L Carbon Dioxide 18 L (21-32) mmol/L Anion Gap 13.0 (6-13) BUN 96 H* (6-20) mg/dL Creatinine 8.4 H* (0.4-1.0) mg/dL Estimated GFR (MDRD) 5 L (>89) Glucose 96 (70-100) mg/dL Calcium 8.5 (8.5-10.3) mg/dL Phosphorus < 1.0 L* (2.5-4.6) mg/dL Magnesium 2.0 (1.7-2.8) mg/dL Total Bilirubin (0.2-1.0) mg/dL AST (10-42) IU/L ALT (10-60) IU/L Alkaline Phosphatase (42-121) IU/L Total Protein (6.7-8.2) g/dL Albumin (3.2-5.5) g/dL Globulin (2.1-4.2) g/dL Albumin/Globulin Ratio (1.0-2.2) Lipase (22-51) U/L TSH 1.64 (0.34-5.60) uIU/mL Urine Color Urine Clarity (CLEAR) Urine pH (5.0-7.5) PH Ur Specific [place] (1.002-1.030) Urine Protein (NEGATIVE) mg/dL Urine Glucose (UA) (NEGATIVE) mg/dL Urine Ketones (NEGATIVE) mg/dL Urine Occult Blood (NEGATIVE) Urine Nitrite (NEGATIVE) Urine Bilirubin (NEGATIVE) Urine Urobilinogen (NORMAL) E.U./dL Ur Leukocyte Esterase (NEGATIVE) Urine RBC (0-5) /HPF Urine WBC (0-5) /HPF Urine WBC Clumps Ur Squamous Epith Cells (<= Few) Urine Bacteria (None Seen) /HPF Ur Microscopic Review Urine Culture Comments Urine Sodium mmol/L Nasal Adenovirus (PCR) Nasal B. parapertussis DNA (PCR) Nasal Coronavir 229E PCR Nasal Coronavir HKU1 PCR Nasal Coronavir NL63 PCR Nasal Coronavir OC43 PCR Nasal Enterovir/Rhinovir PCR Nasal Influenza B PCR Nasal Influenza A PCR Nasal Parainfluen 1 PCR Nasal Parainfluen 2 PCR Nasal Parainfluen 3 PCR Nasal Parainfluen 4 PCR Nasal RSV (PCR) Nasal B.pertussis DNA PCR Nasal C.pneumoniae (PCR) Víctor Human Metapneumo PCR Nasal M.pneumoniae (PCR) Nasal SARS-CoV-2 (PCR) 05/04/21 05/04/21 05/04/21 Range/Units 13:50 12:51 11:04 WBC (4.8-10.8) x10^3/uL RBC (4.20-5.40) 10^6/uL Hgb (12.0-16.0) g/dL Hct (37.0-47.0) % MCV (81.0-99.0) fL MCH (27.0-31.0) pg MCHC (32.0-36.0) g/dL RDW (12.0-15.0) % Plt Count (130-450) 10^3/uL MPV (7.9-10.8) fL Neut # (Auto) (1.5-6.6) 10^3/uL Lymph # (Auto) (1.5-3.5) 10^3/uL [place] # (Auto) (0.0-1.0) 10^3/uL Eos # (Auto) (0.0-0.7) 10^3/uL Baso # (Auto) (0.0-0.1) 10^3/uL Absolute Nucleated RBC x10^3/uL Nucleated RBC % /100WBC Sodium 131 L (135-145) mmol/L Potassium 4.4 (3.5-5.0) mmol/L Chloride 100 L (101-111) mmol/L Carbon Dioxide 17 L (21-32) mmol/L Anion Gap 14.0 H (6-13) BUN 102 H* (6-20) mg/dL Creatinine 8.4 H* (0.4-1.0) mg/dL Estimated GFR (MDRD) 5 L (>89) Glucose 91 (70-100) mg/dL Calcium 8.2 L (8.5-10.3) mg/dL Phosphorus (2.5-4.6) mg/dL Magnesium (1.7-2.8) mg/dL Total Bilirubin (0.2-1.0) mg/dL AST (10-42) IU/L ALT (10-60) IU/L Alkaline Phosphatase (42-121) IU/L Total Protein (6.7-8.2) g/dL Albumin (3.2-5.5) g/dL Globulin (2.1-4.2) g/dL Albumin/Globulin Ratio (1.0-2.2) Lipase (22-51) U/L TSH (0.34-5.60) uIU/mL Urine Color Urine Clarity (CLEAR) Urine pH (5.0-7.5) PH Ur Specific [place] (1.002-1.030) Urine Protein (NEGATIVE) mg/dL Urine Glucose (UA) (NEGATIVE) mg/dL Urine Ketones (NEGATIVE) mg/dL Urine Occult Blood (NEGATIVE) Urine Nitrite (NEGATIVE) Urine Bilirubin (NEGATIVE) Urine Urobilinogen (NORMAL) E.U./dL Ur Leukocyte Esterase (NEGATIVE) Urine RBC (0-5) /HPF Urine WBC (0-5) /HPF Urine WBC Clumps Ur Squamous Epith Cells (<= Few) Urine Bacteria (None Seen) /HPF Ur Microscopic Review Urine Culture Comments Urine Sodium 52.0 mmol/L Nasal Adenovirus (PCR) NOT DETECTED Nasal B. parapertussis DNA (PCR) NOT DETECTED Nasal Coronavir 229E PCR NOT DETECTED Nasal Coronavir HKU1 PCR NOT DETECTED Nasal Coronavir NL63 PCR NOT DETECTED Nasal Coronavir OC43 PCR NOT DETECTED Nasal Enterovir/Rhinovir PCR NOT DETECTED Nasal Influenza B PCR NOT DETECTED Nasal Influenza A PCR NOT DETECTED Nasal Parainfluen 1 PCR NOT DETECTED Nasal Parainfluen 2 PCR NOT DETECTED Nasal Parainfluen 3 PCR NOT DETECTED Nasal Parainfluen 4 PCR NOT DETECTED Nasal RSV (PCR) NOT DETECTED Nasal B.pertussis DNA PCR NOT DETECTED Nasal C.pneumoniae (PCR) NOT DETECTED Víctor Human Metapneumo PCR NOT DETECTED Nasal M.pneumoniae (PCR) NOT DETECTED Nasal SARS-CoV-2 (PCR) NOT DETECTED 05/04/21 05/04/21 05/04/21 Range/Units 11:04 10:35 10:35 WBC 8.8 (4.8-10.8) x10^3/uL RBC 3.76 L (4.20-5.40) 10^6/uL Hgb 10.8 L (12.0-16.0) g/dL Hct 32.2 L (37.0-47.0) % MCV 85.6 (81.0-99.0) fL MCH 28.7 (27.0-31.0) pg MCHC 33.5 (32.0-36.0) g/dL RDW 14.7 (12.0-15.0) % Plt Count 240 (130-450) 10^3/uL MPV 9.4 (7.9-10.8) fL Neut # (Auto) 5.0 (1.5-6.6) 10^3/uL Lymph # (Auto) 2.8 (1.5-3.5) 10^3/uL [place] # (Auto) 0.8 (0.0-1.0) 10^3/uL Eos # (Auto) 0.1 (0.0-0.7) 10^3/uL Baso # (Auto) 0.0 (0.0-0.1) 10^3/uL Absolute Nucleated RBC 0.00 x10^3/uL Nucleated RBC % 0.0 /100WBC Sodium 129 L (135-145) mmol/L Potassium 4.4 (3.5-5.0) mmol/L Chloride 93 L (101-111) mmol/L Carbon Dioxide 18 L (21-32) mmol/L Anion Gap 18.0 H (6-13) BUN 111 H* (6-20) mg/dL Creatinine 9.1 H* (0.4-1.0) mg/dL Estimated GFR (MDRD) 4 L (>89) Glucose 116 H (70-100) mg/dL Calcium 9.2 (8.5-10.3) mg/dL Phosphorus (2.5-4.6) mg/dL Magnesium (1.7-2.8) mg/dL Total Bilirubin 0.7 (0.2-1.0) mg/dL AST 15 (10-42) IU/L ALT 17 (10-60) IU/L Alkaline Phosphatase 59 (42-121) IU/L Total Protein 9.8 H (6.7-8.2) g/dL Albumin 3.2 (3.2-5.5) g/dL Globulin 6.6 H (2.1-4.2) g/dL Albumin/Globulin Ratio 0.5 L (1.0-2.2) Lipase 49 (22-51) U/L TSH (0.34-5.60) uIU/mL Urine Color YELLOW Urine Clarity CLOUDY (CLEAR) Urine pH 6.0 (5.0-7.5) PH Ur Specific [place] 1.020 (1.002-1.030) Urine Protein 100 H (NEGATIVE) mg/dL Urine Glucose (UA) NEGATIVE (NEGATIVE) mg/dL Urine Ketones NEGATIVE (NEGATIVE) mg/dL Urine Occult Blood MODERATE H (NEGATIVE) Urine Nitrite NEGATIVE (NEGATIVE) Urine Bilirubin NEGATIVE (NEGATIVE) Urine Urobilinogen 0.2 (NORMAL) (NORMAL) E.U./dL Ur Leukocyte Esterase LARGE H (NEGATIVE) Urine RBC 6-10 H (0-5) /HPF Urine WBC >25 H (0-5) /HPF Urine WBC Clumps PRESENT Ur Squamous Epith Cells RARE Squamous (<= Few) Urine Bacteria Moderate H (None Seen) /HPF Ur Microscopic Review INDICATED Urine Culture Comments INDICATED Urine Sodium mmol/L Nasal Adenovirus (PCR) Nasal B. parapertussis DNA (PCR) Nasal Coronavir 229E PCR Nasal Coronavir HKU1 PCR Nasal Coronavir NL63 PCR Nasal Coronavir OC43 PCR Nasal Enterovir/Rhinovir PCR Nasal Influenza B PCR Nasal Influenza A PCR Nasal Parainfluen 1 PCR Nasal Parainfluen 2 PCR Nasal Parainfluen 3 PCR Nasal Parainfluen 4 PCR Nasal RSV (PCR) Nasal B.pertussis DNA PCR Nasal C.pneumoniae (PCR) Víctor Human Metapneumo PCR Nasal M.pneumoniae (PCR) Nasal SARS-CoV-2 (PCR) ABX Reporting Has patient been on IV antibiotics over the past 48 hours?: Yes Assessment/Plan - Problem List (1) Acute renal failure Impression: This is likely prerenal injury secondary to decreased oral intake. Her BUN has improved today and her creatinine is improved compared to initial labs but has not had improvement compared to the labs from yesterday afternoon. She has had 400 mL of urine output today. Renal ultrasound showed mild right hydronephrosis which was present on prior CT from over 1 year ago so I doubt this is the cause of her acute kidney injury. We will continue to hydrate her with IV fluids and avoid nephrotoxins. We discussed the potential need for hemodialysis again if her renal function has not improved and she once again has made it clear she does not want hemodialysis. We discussed that if her renal function does not improve then we can focus on her comfort and she is agreeable to this but for the time being, we will continue medical management with IV hydration. We will repeat labs this afternoon to monitor for electrolyte derangements. Qualifiers: Acute renal failure type: unspecified Qualified Code(s): N17.9 - Acute kidney failure, unspecified (2) Altered mental status Impression: This is improved and I suspect related to her renal failure. She oriented to self, location, year but not to month. I suspect this is close to her baseline. We will continue to treat her underlying renal failure with IV fluids. Holding her home gabapentin for the time being given her renal failure. We will resume when appropriate. Qualifiers: Altered mental status type: disorientation Qualified Code(s): R41.0 - Disorientation, unspecified (3) Failure to thrive Impression: She has had decreased oral intake leading to her renal failure. She is at risk for refeeding syndrome especially with her hypophosphatemia now. We have consulted nutrition to help assist with this. We have encouraged her to eat with meals and have provided her with Ensure supplementation. Qualifiers: Failure to thrive age range: in adult Qualified Code(s): R62.7 - Adult failure to thrive (4) Urinary tract infection Impression: Concern is for urinary tract infection given her abnormal urinalysis. Ultrasound also revealed debris within the bladder consistent with infection. She has no symptoms we will treat empirically with ceftriaxone IV and follow-up cultures. Qualifiers: Urinary tract infection type: acute cystitis Hematuria presence: with hematuria Qualified Code(s): N30.01 - Acute cystitis with hematuria (5) Hyponatremia Impression: This is likely hypovolemic hyponatremia. Her sodium today is 128. This should improve with IV saline. We will continue to monitor. (6) Hypophosphatemia Impression: Her phosphorus today is less than 1. We will replace this with sodium phosphate given her potassium is in the upper limits of normal. We will recheck it this evening. She is potentially at risk for refeeding syndrome if she really has had limited p.o. intake over the past few days/week. (7) Hypertension Impression: She is hypertensive with systolics in the 140s. We are holding her home losartan given the acute renal failure. If her blood pressure is elevated we can consider adding amlodipine. (8) Hypothyroidism Impression: Stable. Continue Synthroid.
[2021-05-05] MEDS ORDERED: SODIUM PHOSPHATE 20 MMOL in SODIUM CHLORIDE 0.9% 250 ML IV ONE (08:00)
[2021-05-05] MEDS: cefTRIAXone 1 GM in SODIUM CHLORIDE 0.9% MINIBAG 100 ML IV SCH (08:39)
[2021-05-05] MEDS: SODIUM CHLORIDE FLUSH 0.9% 10 ML SYRINGE IVP SCH ×2 (08:39→17:27)
[2021-05-05] MEDS: SODIUM CHLORIDE 0.9% 1,000 ML IV SCH ×2 (08:39→19:23)
[2021-05-05] MEDS: HEPARIN 5,000 UNIT/ML VIAL SUBQ SCH ×2 (09:00→20:46)
[2021-05-05 14:17] LABS: CALCIUM 8.4 mg/dL (8.5-10.3); POTASSIUM 4.6 mmol/L (3.5-5.0)
[2021-05-05 14:18] LABS: CREATININE 8.2 mg/dL (0.4-1.0)
[2021-05-05] MEDS: ATORVASTATIN 40 MG TABLET PO SCH (20:46)
[2021-05-06] MEDS: SODIUM CHLORIDE FLUSH 0.9% 10 ML SYRINGE IVP SCH ×3 (01:27→16:43)
[2021-05-06 05:10] LABS: BASOPHILS % (AUTO) 0.3 %; EOSINOPHILS # (AUTO) 0.1 10^3/uL (0.0-0.7); EOSINOPHILS % (AUTO) 1.5 %; HCT - HEMATOCRIT 28.9 % (37.0-47.0); HGB - HEMOGLOBIN 9.7 g/dL (12.0-16.0); LYMPHOCYTES # (AUTO) 1.7 10^3/uL (1.5-3.5); MEAN CORPUSCULAR HEMOGLOBIN 28.8 pg (27.0-31.0); MEAN CORPUSCULAR HGB CONC 33.6 g/dL (32.0-36.0); MEAN CORPUSCULAR VOLUME 85.8 fL (81.0-99.0); MEAN PLATELET VOLUME 9.7 fL (7.9-10.8); MONOCYTES # (AUTO) 0.5 10^3/uL (0.0-1.0); MONOCYTES % (AUTO) 7.3 %; NEUTROPHILS # (AUTO) 4.3 10^3/uL (1.5-6.6); NEUTROPHILS % (AUTO) 65.1 %; PLT - PLATELET COUNT 195 10^3/uL (130-450); RED BLOOD COUNT 3.37 10^6/uL (4.20-5.40); RED CELL DISTRIBUTION WIDTH 14.7 % (12.0-15.0); WHITE BLOOD COUNT 6.6 x10^3/uL (4.8-10.8)
[2021-05-06 05:34] LABS: CARBON DIOXIDE - CO2 17 mmol/L (21-32); CHLORIDE 102 mmol/L (101-111); GFR - MDRD 5 (>89); GLUCOSE 103 mg/dL (70-100); MAGNESIUM 1.8 mg/dL (1.7-2.8); POTASSIUM 4.2 mmol/L (3.5-5.0); SODIUM 133 mmol/L (135-145)
[2021-05-06 05:56] LABS: BUN - BLOOD UREA NITROGEN 93 mg/dL (6-20); CREATININE 7.7 mg/dL (0.4-1.0); PHOSPHORUS < 1.0 mg/dL (2.5-4.6)
[2021-05-06] MEDS: LEVOTHYROXINE 25 MCG TABLET PO SCH (06:17)
[2021-05-06] MEDS: PANTOPRAZOLE 40 MG TABLET PO SCH (06:17)
--- NOTE | 2021-05-06 07:12 | PROVIDER PROGRESS NOTE ---
Subjective - Prog Note Date Prog Note Date: 05/06/21 Prog Note Time: 07:10 - Subjective Pt reports feeling: Improved Subjective: She is awake, but sleepy. States that she is feeling better. Still nauseated with no appetite. I asked her if she feels that it is time for her to , and that is why she stopped eating and drinking. She says that she was depressed, was losing motivation. But now that we have been hydrating her, she is starting to feel better and realizes that she really does not want to . She still does not want dialysis. Current Medications - Current Medications Current Medications: Active Medications Acetaminophen (Acetaminophen 325 Mg Tablet) 650 mg PO Q4HR PRN PRN Reason: Pain 1 to 4 Atorvastatin Calcium (Atorvastatin 40 Mg Tablet) 40 mg PO QPM [facility] Last Admin: 05/05/21 20:46 Dose: 40 mg Documented by: Heparin Sodium (Porcine) (Heparin 5,000 Unit/Ml Vial) 5,000 unit SUBQ BID [facility] Last Admin: 05/05/21 20:46 Dose: 5,000 unit Documented by: Ceftriaxone Sodium 1 gm/ (Sodium Chloride) 100 mls @ 200 mls/hr IV DAILY [facility] Last Infusion: 05/05/21 09:10 Dose: Infused Documented by: Sodium Chloride (Normal Saline 0.9%) 1,000 mls @ 100 mls/hr IV .Q10H [facility] Last Admin: 05/05/21 19:23 Dose: 100 mls/hr Documented by: Levothyroxine Sodium (Levothyroxine 25 Mcg Tablet) 50 mcg PO QDAC [facility] Last Admin: 05/06/21 06:17 Dose: 50 mcg Documented by: Ondansetron HCl (Ondansetron Odt 4 Mg Tablet) 4 mg TL Q6HR PRN PRN Reason: Nausea / Vomiting Ondansetron HCl (Ondansetron 4 Mg/2 Ml Vial) 4 mg IVP Q6HR PRN PRN Reason: Nausea / Vomiting Pantoprazole Sodium (Pantoprazole 40 Mg Tablet) 40 mg PO QDAC [facility] Last Admin: 05/06/21 06:17 Dose: 40 mg Documented by: Sodium Chloride (Sodium Chloride Flush 0.9% 10 Ml Syringe) 10 ml IVP PRN PRN PRN Reason: NEEDED PER PROVIDER ORDERS Sodium Chloride (Sodium Chloride Flush 0.9% 10 Ml Syringe) 10 ml IVP 0100,0900,1700 [facility] Last Admin: 05/06/21 01:27 Dose: Not Given Documented by: Venlafaxine HCl (Venlafaxine Er 37.5 Mg Capsule) 37.5 mg PO DAILY [facility] Diclofenac Sodium Dr [Voltaren] 75 mg PO DAILY 10/26/20 Fluticasone [Flonase] 1 spray IN DAILY 10/26/20 Gabapentin [Neurontin] 200 mg PO DAILY 10/26/20 Levothyroxine Sodium [Synthroid] 50 mcg PO DAILY 10/26/20 Omeprazole 40 mg PO DAILY 10/26/20 Oxybutynin [Ditropan] 10 mg PO DAILY 10/26/20 Rosuvastatin Calcium [Crestor] 20 mg PO DAILY 10/26/20 Valsartan [Diovan] 80 mg PO DAILY 10/26/20 Acetaminophen [Tylenol] 325 mg PO DAILY PRN 04/07/21 Nystatin [Nystop] 1 applic TOP BID 04/07/21 Venlafaxine ER [Effexor ER] 37.5 mg PO DAILY 05/04/21 Objective - Vital Signs/Intake & Output Reviewed Vital Signs: Yes Vital Signs: Vital Signs x48h Temp Pulse Resp BP Pulse Ox 05/06/21 06:22 36.6 C 81 18 165/64 H 96 05/06/21 00:18 36.5 C 80 18 150/56 H 97 Intake & Output: Intake & Output 05/03/21 05/04/21 05/05/21 05/06/21 23:59 23:59 23:59 23:59 Intake Total 3340.000 3754.0667 Output Total 50 750 950 Balance 3290.000 3004.0667 -950 - Objective General Appearance: positive: No acute distress, Other (Sleepy, slightly slow to wake. But alert, oriented to person and place and why she is here.) Eyes Bilateral: positive: EOMI, Other (Left cornea is opacified. Right pupil is reactive.) ENT: positive: Dry mucous membranes Neck: positive: No JVD. negative: Stiff neck Respiratory: positive: Chest non-tender. negative: Wheezes, Rales, Rhonchi Cardiovascular: positive: Regular rate & rhythm, Systolic murmur. negative: Gallop/S4, Friction rub Abdomen: positive: Non-tender, No organomegaly, Nml bowel sounds, No distention Skin: positive: Warm, Dry, Pallor Extremities: positive: Full ROM, Pedal edema Neurologic/Psychiatric: positive: Motor nml (No focal deficits but severe generalized weakness), Disoriented to time - Lab Results Fish Bones: 05/06/21 05:02 05/06/21 05:02 Other Labs: Lab Results x24hrs 05/06/21 05/06/21 05/05/21 Range/Units 05:02 05:02 16:57 WBC 6.6 (4.8-10.8) x10^3/uL RBC 3.37 L (4.20-5.40) 10^6/uL Hgb 9.7 L (12.0-16.0) g/dL Hct 28.9 L (37.0-47.0) % MCV 85.8 (81.0-99.0) fL MCH 28.8 (27.0-31.0) pg MCHC 33.6 (32.0-36.0) g/dL RDW 14.7 (12.0-15.0) % Plt Count 195 (130-450) 10^3/uL MPV 9.7 (7.9-10.8) fL Neut # (Auto) 4.3 (1.5-6.6) 10^3/uL Lymph # (Auto) 1.7 (1.5-3.5) 10^3/uL [place] # (Auto) 0.5 (0.0-1.0) 10^3/uL Eos # (Auto) 0.1 (0.0-0.7) 10^3/uL Baso # (Auto) 0.0 (0.0-0.1) 10^3/uL Absolute Nucleated RBC 0.00 x10^3/uL Nucleated RBC % 0.0 /100WBC Sodium 133 L (135-145) mmol/L Potassium 4.2 (3.5-5.0) mmol/L Chloride 102 (101-111) mmol/L Carbon Dioxide 17 L (21-32) mmol/L Anion Gap 14.0 H (6-13) BUN 93 H* (6-20) mg/dL Creatinine 7.7 H* (0.4-1.0) mg/dL Estimated GFR (MDRD) 5 L (>89) Glucose 103 H (70-100) mg/dL Calcium 8.0 L (8.5-10.3) mg/dL Phosphorus < 1.0 L* 7.0 H (2.5-4.6) mg/dL Magnesium 1.8 (1.7-2.8) mg/dL 05/05/21 Range/Units 13:53 WBC (4.8-10.8) x10^3/uL RBC (4.20-5.40) 10^6/uL Hgb (12.0-16.0) g/dL Hct (37.0-47.0) % MCV (81.0-99.0) fL MCH (27.0-31.0) pg MCHC (32.0-36.0) g/dL RDW (12.0-15.0) % Plt Count (130-450) 10^3/uL MPV (7.9-10.8) fL Neut # (Auto) (1.5-6.6) 10^3/uL Lymph # (Auto) (1.5-3.5) 10^3/uL [place] # (Auto) (0.0-1.0) 10^3/uL Eos # (Auto) (0.0-0.7) 10^3/uL Baso # (Auto) (0.0-0.1) 10^3/uL Absolute Nucleated RBC x10^3/uL Nucleated RBC % /100WBC Sodium 132 L (135-145) mmol/L Potassium 4.6 (3.5-5.0) mmol/L Chloride 100 L (101-111) mmol/L Carbon Dioxide 19 L (21-32) mmol/L Anion Gap 13.0 (6-13) BUN 99 H* (6-20) mg/dL Creatinine 8.2 H* (0.4-1.0) mg/dL Estimated GFR (MDRD) 5 L (>89) Glucose 149 H (70-100) mg/dL Calcium 8.4 L (8.5-10.3) mg/dL Phosphorus (2.5-4.6) mg/dL Magnesium (1.7-2.8) mg/dL Assessment/Plan - Problem List (1) Acute renal failure Impression: Her BUN and creatinine slowly are improving compared to her admission labs. Renal ultrasound has mild hydronephrosis which was present on CT from over a year ago so we doubt this is the cause of her acute kidney injury. Plan: Continue to hydrate. Avoid nephrotoxins. She continues to decline dialysis if it comes to that We are focusing on comfort measures at her request. But she still does want hydration, and treatment for infection or blood transfusions etc. if need be. She just does not want to be transferred or have aggressive surgical procedures. Qualifiers: Acute renal failure type: unspecified Qualified Code(s): N17.9 - Acute kidney failure, unspecified (2) Altered mental status improving Impression: Most likely she had metabolic encephalopathy from her renal failure.. She oriented to self, location, year but not to month/day. I suspect this is close to her baseline. We will continue to treat her underlying renal failure with IV fluids. Holding her home gabapentin for the time being given her renal failure. We will resume when appropriate. Qualifiers: Altered mental status type: disorientation Qualified Code(s): R41.0 - Diso rientation, unspecified (3) Failure to thrive Impression: She has had decreased oral intake leading to her renal failure. She reluctantly admits that she was very depressed. Wondered why she was alive. This led to the decreased eating and oral intake. Today she states that she feels better, and does not want to . She is at risk for refeeding syndrome especially with her hypophosphatemia now. We have consulted nutrition to help assist with this. We have encouraged her to eat with meals and have provided her with Ensure supplementation. We will also ask for social work consult for mental health evaluation. Qualifiers: Failure to thrive age range: in adult Qualified Code(s): R62.7 - Adult failure to thrive (4) Urinary tract infection Impression: Concern is for urinary tract infection given her abnormal urinalysis. Ultrasound also revealed debris within the bladder consistent with infection. She had no symptoms. Urine culture is growing out gram-negative dorothy. She is on empiric ceftriaxone. A low-grade UTI may have led to her symptoms of malaise, not feeling well, and failure to thrive. Plan: Continue ceftriaxone until identification and sensitivities come back Qualifiers: Urinary tract infection type: acute cystitis Hematuria presence: with hematuria Qualified Code(s): N30.01 - Acute cystitis with hematuria (5) Hyponatremia Impression: This is likely hypovolemic hyponatremia. Her sodium dropped to 128. She is now 133 with hydration. Plan: Continue to monitor (6) Hypophosphatemia Impression: Her phosphorus 8/10 was less than 1. We replaced this with sodium phosphate given her potassium is in the upper limits of normal. Recheck last night was 7. It is unclear why normal replacement would result in such a high level. This morning she is back down to less than 1. She is potentially at risk for refeeding syndrome if she really has had limited p.o. intake over the past few days/week. I hesitate to replace phosphorus considering yesterday's result. We will hold off until tomorrow with repeat level. (7) Hypertension Impression: She is hypertensive with systolics in the 140s. We are holding her home losartan given the acute renal failure. If her blood pressure is elevated we can consider adding amlodipine. (8) Hypothyroidism Impression: Stable. Continue Synthroid. Qualifiers: Qualified Code(s): N17.9 - Acute kidney failure, unspecified
[2021-05-06] MEDS: SODIUM CHLORIDE 0.9% 1,000 ML IV SCH ×2 (08:09→19:02)
[2021-05-06] MEDS: VENLAFAXINE ER 37.5 MG CAPSULE PO SCH (09:09)
[2021-05-06] MEDS: cefTRIAXone 1 GM in SODIUM CHLORIDE 0.9% MINIBAG 100 ML IV SCH (09:09)
[2021-05-06] MEDS: HEPARIN 5,000 UNIT/ML VIAL SUBQ SCH ×2 (09:10→20:35)
[2021-05-06] MEDS: levoFLOXacin 250 MG TABLET PO SCH (19:02)
[2021-05-06] MEDS: ATORVASTATIN 40 MG TABLET PO SCH (20:35)
[2021-05-07] MEDS: SODIUM CHLORIDE FLUSH 0.9% 10 ML SYRINGE IVP SCH ×3 (01:47→18:14)
[2021-05-07] MEDS: PANTOPRAZOLE 40 MG TABLET PO SCH (05:46)
[2021-05-07] MEDS: LEVOTHYROXINE 25 MCG TABLET PO SCH (05:46)
[2021-05-07] MEDS: SODIUM CHLORIDE 0.9% 1,000 ML IV SCH ×2 (06:00→18:59)
[2021-05-07 06:09] LABS: BASOPHILS % (AUTO) 0.2 %; EOSINOPHILS # (AUTO) 0.2 10^3/uL (0.0-0.7); EOSINOPHILS % (AUTO) 2.4 %; HCT - HEMATOCRIT 25.9 % (37.0-47.0); HGB - HEMOGLOBIN 8.7 g/dL (12.0-16.0); LYMPHOCYTES # (AUTO) 1.6 10^3/uL (1.5-3.5); LYMPHOCYTES % (AUTO) 23.7 %; MEAN CORPUSCULAR HEMOGLOBIN 28.6 pg (27.0-31.0); MEAN CORPUSCULAR HGB CONC 33.6 g/dL (32.0-36.0); MEAN CORPUSCULAR VOLUME 85.2 fL (81.0-99.0); MEAN PLATELET VOLUME 10.6 fL (7.9-10.8); MONOCYTES # (AUTO) 0.5 10^3/uL (0.0-1.0); MONOCYTES % (AUTO) 7.4 %; NEUTROPHILS # (AUTO) 4.3 10^3/uL (1.5-6.6); NEUTROPHILS % (AUTO) 65.5 %; PLT - PLATELET COUNT 198 10^3/uL (130-450); RED BLOOD COUNT 3.04 10^6/uL (4.20-5.40); RED CELL DISTRIBUTION WIDTH 14.9 % (12.0-15.0); WHITE BLOOD COUNT 6.6 x10^3/uL (4.8-10.8)
[2021-05-07 06:24] LABS: CALCIUM 7.9 mg/dL (8.5-10.3); MAGNESIUM 1.7 mg/dL (1.7-2.8); PHOSPHORUS 4.3 mg/dL (2.5-4.6); POTASSIUM 4.4 mmol/L (3.5-5.0)
[2021-05-07 06:32] LABS: CREATININE 7.1 mg/dL (0.4-1.0)
[2021-05-07] MEDS: VENLAFAXINE ER 37.5 MG CAPSULE PO SCH (08:00)
[2021-05-07] MEDS: HEPARIN 5,000 UNIT/ML VIAL SUBQ SCH ×2 (08:00→21:08)
--- NOTE | 2021-05-07 16:53 | PROVIDER PROGRESS NOTE ---
Assessment/Plan - Problem List (1) Pseudomonas urinary tract infection Assessment/Plan: Her U/A was abnoprmal and Ultrasound also revealed debris within the bladder consistent with infection. She had no reported symptoms but was weak. She had been put on enmpiric iv Rocephin. The Urine culture has grown Pseudomonas, not sens to Cephalosporins, as such her Ceftriaxone was changed to Levaquin yesterday. (2) Acute renal failure Qualifiers: Qualified Code(s): N17.9 - Acute kidney failure, unspecified Assessment/Plan: Her BUN and creatinine slowly are improving (creat 7.1 today) compared to her admission labs (creat 9.1). Renal ultrasound had mild hydronephrosis which was present on CT from over a year ago so we doubt this is the cause of her acute kidney injury. Will continue to hydrate with iv fluids Avoid nephrotoxins. She continues to decline dialysis if it comes to that We are focusing on comfort measures at her request. But she still does want hydration, and treatment for infection or blood transfusions etc. if need be. (3) Altered mental status improving Impression: Most likely she had metabolic encephalopathy from her renal failure (uremia). She was oriented to self, location, year but not to month/day. I suspect this is close to her baseline. We will continue to treat her underlying renal failure with IV fluids. Holding her home gabapentin for the time being given her renal failure. We will resume when appropriate. Qualifiers: Altered mental status type: disorientation Qualified Code(s): R41.0 - Disorientation, unspecified (4) Failure to thrive Impression: She has had decreased oral intake leading to her renal failure. She reluctantly admits that she was very depressed. Wondered why she was alive. This led to the decreased eating and oral intake. Yesterday she stated that she feels better, and does not want to . She is at risk for refeeding syndrome especially with her hypophosphatemia now. We have consulted nutrition to help assist with this. We have encouraged her to eat with meals and have provided her with Ensure supplementation. We will also ask for social work consult for mental health evaluation. (5) Hyponatremia Impression: This is likely hypovolemic hyponatremia. Her sodium was 128. It is improving (is 133 today) with iv hydration. Continue iv hydration (the iv needs to be restarted). Continue to monitor BMP daily. (6) Hypophosphatemia Impression: Her phosphorus on 05/06/21 was less than 1. We replaced this with sodium phosphate given her potassium is in the upper limits of normal. She is potentially at risk for refeeding syndrome if she really has had limited p.o. intake over the past few days/week. I hesitate to replace phosphorus given the [place]. Monitor PO4 daily (7) Hypertension Impression: She was hypertensive with systolics in the 140s. We are holding her home losartan given the acute renal failure. If her blood pressure is elevated we can consider adding amlodipine. (8) Hypothyroidism Impression: TSH was stable. Continue home Synthroid dose (9) Anemia Partly hemodilutional but may also be nutritional deficiency given her FTT. Will order B12 and folate levels and check iron stores and replace if low. Follow CBC daily. - Current Meds Current Meds: Current Medications Generic Name Dose Route Start Last Admin Trade Name Freq PRN Reason Stop Dose Admin Atorvastatin Calcium 40 mg 05/05/21 21:00 05/06/21 20:35 Atorvastatin 40 Mg Tablet PO 40 mg QPM [facility] Administration Heparin Sodium (Porcine) 5,000 unit 05/04/21 21:00 05/07/21 08:00 Heparin 5,000 Unit/Ml Vial SUBQ 5,000 unit BID [facility] Administration Sodium Chloride 1,000 mls @ 100 mls/hr 05/05/21 09:00 05/07/21 13:10 Normal Saline 0.9% IV 0 mls/hr .Q10H [facility] Infusion Levofloxacin 250 mg 05/06/21 19:00 05/06/21 19:02 Levofloxacin 250 Mg Tablet PO 05/08/21 19:01 250 mg Q24H [facility] Administration Levothyroxine Sodium 50 mcg 05/06/21 07:00 05/07/21 05:46 Levothyroxine 25 Mcg Tablet PO 50 mcg QDAC [facility] Administration Pantoprazole Sodium 40 mg 05/06/21 07:00 05/07/21 05:46 Pantoprazole 40 Mg Tablet PO 40 mg QDAC [facility] Administration Sodium Chloride 10 ml 05/04/21 17:00 05/07/21 08:00 Sodium Chloride Flush 0.9% 10 Ml Syringe IVP Not Given 0100,0900,1700 [facility] Venlafaxine HCl 37.5 mg 08/10/21 09:00 05/07/21 08:00 Venlafaxine Er 37.5 Mg Capsule PO 37.5 mg DAILY [facility] Administration - Lab Result Fish Bone Diagrams: 05/07/21 05:43 05/07/21 05:43 - Additional Planning My Orders: My Active Orders 05/06/21 19:00 levoFLOXacin [Levaquin] 250 mg PO Q24H Subjective - Subjective Patient Reports: Resting Comfortably, No Complaints Nursing Reports: Other (L arm iv infiltrated after R hand iv infiltrated) Objective Vital Signs: Vital Signs - 24 hr 05/06/21 05/06/21 05/07/21 19:44 23:54 05:00 Temperature 36.8 C 36.9 C 36.5 C Heart Rate [ 73 79 86 Brachial] Respiratory 24 22 18 Rate Blood Pressure 155/65 H 146/65 H 151/72 H [Right Brachial artery] O2 Saturation 98 99 96 05/07/21 05/07/21 05/07/21 07:47 11:26 16:12 Temperature 36.6 C 36.7 C 36.5 C Heart Rate [ 78 74 83 Brachial] Respiratory 22 20 22 Rate Blood Pressure 145/75 H 157/67 H 145/64 H [Right Brachial artery] O2 Saturation 98 100 97 Oxygen O2 Source Room air I&O (Last 24 Hrs): Intake and Output Totals x24h 05/05/21 05/06/21 05/07/21 23:59 23:59 23:59 Intake Total 3754.0667 3782 2066.667 Output Total 750 1950 1350 Balance 3004.0667 1832 716.667 General: Alert HEENT: Other (L eye opacity) Neck: Supple, No JVD Neuro: Alert, Non Focal Cardiovascular: Regular rate, No murmurs Respiratory: No respiratory distress, Breath sounds nml Abdomen: Normal bowel sounds, Soft Extremities: Other (1+ edema) - Results Results: Laboratory Results WBC 6.6 x10^3/uL (4.8-10.8) 05/07/21 05:43 RBC 3.04 10^6/uL (4.20-5.40) L 05/07/21 05:43 Hgb 8.7 g/dL (12.0-16.0) L 05/07/21 05:43 Hct 25.9 % (37.0-47.0) L 05/07/21 05:43 MCV 85.2 fL (81.0-99.0) 05/07/21 05:43 MCH 28.6 pg (27.0-31.0) 05/07/21 05:43 MCHC 33.6 g/dL (32.0-36.0) 05/07/21 05:43 RDW 14.9 % (12.0-15.0) 05/07/21 05:43 Plt Count 198 10^3/uL (130-450) 05/07/21 05:43 MPV 10.6 fL (7.9-10.8) 05/07/21 05:43 Neut # (Auto) 4.3 10^3/uL (1.5-6.6) 05/07/21 05:43 Lymph # (Auto) 1.6 10^3/uL (1.5-3.5) 05/07/21 05:43 [place] # (Auto) 0.5 10^3/uL (0.0-1.0) 05/07/21 05:43 Eos # (Auto) 0.2 10^3/uL (0.0-0.7) 05/07/21 05:43 Baso # (Auto) 0.0 10^3/uL (0.0-0.1) 05/07/21 05:43 Absolute Nucleated RBC 0.00 x10^3/uL 05/07/21 05:43 Nucleated RBC % 0.0 /100WBC 05/07/21 05:43 Sodium 133 mmol/L (135-145) L 05/07/21 05:43 Potassium 4.4 mmol/L (3.5-5.0) 05/07/21 05:43 Chloride 105 mmol/L (101-111) 05/07/21 05:43 Carbon Dioxide 15 mmol/L (21-32) L 05/07/21 05:43 Anion Gap 13.0 (6-13) 05/07/21 05:43 BUN 85 mg/dL (6-20) H* 05/07/21 05:43 Creatinine 7.1 mg/dL (0.4-1.0) H* 05/07/21 05:43 Estimated GFR (MDRD) 6 (>89) L 05/07/21 05:43 Glucose 107 mg/dL (70-100) H 05/07/21 05:43 Calcium 7.9 mg/dL (8.5-10.3) L 05/07/21 05:43 Phosphorus 4.3 mg/dL (2.5-4.6) 05/07/21 05:43 Magnesium 1.7 mg/dL (1.7-2.8) 05/07/21 05:43 Total Bilirubin 0.7 mg/dL (0.2-1.0) 05/04/21 10:35 AST 15 IU/L (10-42) 05/04/21 10:35 ALT 17 IU/L (10-60) 05/04/21 10:35 Alkaline Phosphatase 59 IU/L (42-121) 05/04/21 10:35 Total Protein 9.8 g/dL (6.7-8.2) H 05/04/21 10:35 Albumin 3.2 g/dL (3.2-5.5) 05/04/21 10:35 Globulin 6.6 g/dL (2.1-4.2) H 05/04/21 10:35 Albumin/Globulin Ratio 0.5 (1.0-2.2) L 05/04/21 10:35 Lipase 49 U/L (22-51) 05/04/21 10:35 TSH 1.64 uIU/mL (0.34-5.60) 05/05/21 05:20 Urine Color YELLOW 05/04/21 11:04 Urine Clarity CLOUDY (CLEAR) 05/04/21 11:04 Urine pH 6.0 PH (5.0-7.5) 05/04/21 11:04 Ur Specific [place] 1.020 (1.002-1.030) 05/04/21 11:04 Urine Protein 100 mg/dL (NEGATIVE) H 05/04/21 11:04 Urine Glucose (UA) NEGATIVE mg/dL (NEGATIVE) 05/04/21 11:04 Urine Ketones NEGATIVE mg/dL (NEGATIVE) 05/04/21 11:04 Urine Occult Blood MODERATE (NEGATIVE) H 05/04/21 11:04 Urine Nitrite NEGATIVE (NEGATIVE) 05/04/21 11:04 Urine Bilirubin NEGATIVE (NEGATIVE) 05/04/21 11:04 Urine Urobilinogen 0.2 (NORMAL) E.U./dL (NORMAL) 05/04/21 11:04 Ur Leukocyte Esterase LARGE (NEGATIVE) H 05/04/21 11:04 Urine RBC 6-10 /HPF (0-5) H 05/04/21 11:04 Urine WBC >25 /HPF (0-5) H 05/04/21 11:04 Urine WBC Clumps PRESENT 05/04/21 11:04 Ur Squamous Epith Cells RARE Squamous (<= Few) 05/04/21 11:04 Urine Bacteria Moderate /HPF (None Seen) H 05/04/21 11:04 Ur Microscopic Review INDICATED 05/04/21 11:04 Urine Culture Comments INDICATED 05/04/21 11:04 Urine Sodium 52.0 mmol/L 05/04/21 11:04 Nasal Adenovirus (PCR) NOT DETECTED 05/04/21 13:50 Nasal B. parapertussis DNA (PCR) NOT DETECTED 05/04/21 13:50 Nasal Coronavir 229E PCR NOT DETECTED 05/04/21 13:50 Nasal Coronavir HKU1 PCR NOT DETECTED 05/04/21 13:50 Nasal Coronavir NL63 PCR NOT DETECTED 05/04/21 13:50 Nasal Coronavir OC43 PCR NOT DETECTED 05/04/21 13:50 Nasal Enterovir/Rhinovir PCR NOT DETECTED 05/04/21 13:50 Nasal Influenza B PCR NOT DETECTED 05/04/21 13:50 Nasal Influenza A PCR NOT DETECTED 05/04/21 13:50 Nasal Parainfluen 1 PCR NOT DETECTED 05/04/21 13:50 Nasal Parainfluen 2 PCR NOT DETECTED 05/04/21 13:50 Nasal Parainfluen 3 PCR NOT DETECTED 05/04/21 13:50 Nasal Parainfluen 4 PCR NOT DETECTED 05/04/21 13:50 Nasal RSV (PCR) NOT DETECTED 05/04/21 13:50 Nasal B.pertussis DNA PCR NOT DETECTED 05/04/21 13:50 Nasal C.pneumoniae (PCR) NOT DETECTED 05/04/21 13:50 Víctor Human Metapneumo PCR NOT DETECTED 05/04/21 13:50 Nasal M.pneumoniae (PCR) NOT DETECTED 05/04/21 13:50 Nasal SARS-CoV-2 (PCR) NOT DETECTED 05/04/21 13:50
[2021-05-07] MEDS: levoFLOXacin 250 MG TABLET PO SCH (18:55)
[2021-05-07] MEDS: ATORVASTATIN 40 MG TABLET PO SCH (21:05)
[2021-05-08] MEDS: SODIUM CHLORIDE FLUSH 0.9% 10 ML SYRINGE IVP SCH ×3 (00:48→15:38)
[2021-05-08] MEDS: SODIUM CHLORIDE 0.9% 1,000 ML IV SCH ×2 (04:36→08:07)
[2021-05-08 05:39] LABS: BASOPHILS % (AUTO) 0.3 %; EOSINOPHILS # (AUTO) 0.2 10^3/uL (0.0-0.7); EOSINOPHILS % (AUTO) 2.4 %; HCT - HEMATOCRIT 26.2 % (37.0-47.0); HGB - HEMOGLOBIN 8.7 g/dL (12.0-16.0); LYMPHOCYTES # (AUTO) 1.8 10^3/uL (1.5-3.5); LYMPHOCYTES % (AUTO) 29.6 %; MEAN CORPUSCULAR HGB CONC 33.2 g/dL (32.0-36.0); MEAN CORPUSCULAR VOLUME 87.3 fL (81.0-99.0); MEAN PLATELET VOLUME 10.5 fL (7.9-10.8); MONOCYTES # (AUTO) 0.5 10^3/uL (0.0-1.0); MONOCYTES % (AUTO) 7.8 %; NEUTROPHILS # (AUTO) 3.6 10^3/uL (1.5-6.6); NEUTROPHILS % (AUTO) 59.1 %; PLT - PLATELET COUNT 199 10^3/uL (130-450); RED CELL DISTRIBUTION WIDTH 15.6 % (12.0-15.0); WHITE BLOOD COUNT 6.1 x10^3/uL (4.8-10.8)
[2021-05-08] MEDS: PANTOPRAZOLE 40 MG TABLET PO SCH (05:47)
[2021-05-08] MEDS: LEVOTHYROXINE 25 MCG TABLET PO SCH (05:47)
[2021-05-08 05:51] LABS: CALCIUM 8.2 mg/dL (8.5-10.3); CREATININE 6.6 mg/dL (0.4-1.0); MAGNESIUM 1.6 mg/dL (1.7-2.8); PHOSPHORUS 3.5 mg/dL (2.5-4.6); POTASSIUM 4.7 mmol/L (3.5-5.0)
[2021-05-08 06:17] LABS: FOLATE 4.88 ng/mL (5.90 - >24.8)
[2021-05-08] MEDS: VENLAFAXINE ER 37.5 MG CAPSULE PO SCH (08:06)
[2021-05-08] MEDS: HEPARIN 5,000 UNIT/ML VIAL SUBQ SCH ×2 (08:06→20:39)
--- NOTE | 2021-05-08 08:35 | PROVIDER PROGRESS NOTE ---
Assessment/Plan - Problem List (1) Pseudomonas urinary tract infection Assessment/Plan: Her admission U/A was abnormal and her ultrasound also revealed debris within the bladder consistent with infection. She had no reported symptoms but was weak. She had been put on empiric iv Rocephin. The urine culture has grown Pseudomonas, not sensitive to Cephalosporins, as such her Ceftriaxone was changed to Levaquin. (2) Acute renal failure Qualifiers: Qualified Code(s): N17.9 - Acute kidney failure, unspecified Assessment/Plan: Her creatinine is improving daily, today down to 6.6. Continue with IV fluids going at a low to moderate rate since her LV function is not known and she already has some peripheral edema. Avoid nephrotoxins. Follow BMP daily She did not want dialysis if it comes to that She could be medically cleared for DCh with a plan for 3 more days of iv fluids. She has been accepted at [facility], where they can give several more days of iv fluids, per our Prescription Clerk, Shelby. (3) Altered mental status Qualifiers: Altered mental status type: disorientation Qualified Code(s): R41.0 - Disorientation, unspecified Assessment/Plan: Most likely she had metabolic encephalopathy from her renal failure (uremia). She was oriented to self, location, year but not to month/day. I suspect this is close to her baseline. We will continue to treat her underlying renal failure with IV fluids. Holding her home gabapentin for the time being given her renal failure. We will resume when appropriate. She was not able to cooperate with PT due to not being cuable and lethargic. Qualifiers: Altered mental status type: disorientation Qualified Code(s): R41.0 - Disorientation, unspecified (4) Failure to thrive Qualifiers: Failure to thrive age range: in adult Qualified Code(s): R62.7 - Adult failure to thrive Assessment/Plan: She had decreased oral intake leading to her renal failure. She reluctantly admitted that she was very depressed. This led to the decreased eating and oral intake. Here she stated that she feels better, and does not want to . She is at risk for refeeding syndrome especially with her hypophosphatemia now. We have consulted nutrition to help assist with this. We have encouraged her to eat with meals and have provided her with Ensure supplementation. We also requested social work consult for mental health evaluation. (5) Hyponatremia Assessment/Plan: This was likely hypovolemic hyponatremia. Her sodium was 128>> 136 today with iv hydration. Continue iv hydration and will change to 1/2NS today. Continue to monitor BMP daily. Possible DCh tomorrow and will plan 3-4 more days of scheduled iv fluids. (6) Hypertension Assessment/Plan: She now has sustained hypertension with systolics in the 180s. We were holding her home Losartan because of the acute renal failure. We cannot use Amlodipine (which was planned) because it is listed as an allergy. Will start Clonidine, in the form of a weekly patch topically. Will also start prn iv Hydralazine for excessive HTN. (7) Hypothyroidism Assessment/Plan: TSH was stable. Continue home Synthroid dose (8) Anemia Qualifiers: Anemia type: iron deficiency Assessment/Plan: She has both iron deficiency and low folate levels. We will start daily oral ferrous gluconate and daily oral folic acid. (9) Hypophosphatemia Assessment/Plan: Resolved with replacement - Current Meds Current Meds: Current Medications Generic Name Dose Route Start Last Admin Trade Name Freq PRN Reason Stop Dose Admin Acetaminophen 650 mg 05/04/21 13:23 05/08/21 00:54 Acetaminophen 325 Mg Tablet PO 650 mg Q4HR PRN Administration Pain 1 to 4 Atorvastatin Calcium 40 mg 05/05/21 21:00 05/07/21 21:05 Atorvastatin 40 Mg Tablet PO 40 mg QPM HAZEL Administration Heparin Sodium (Porcine) 5,000 unit 05/04/21 21:00 05/08/21 08:06 Heparin 5,000 Unit/Ml Vial SUBQ 5,000 unit BID HAZEL Administration Sodium Chloride 1,000 mls @ 100 mls/hr 05/05/21 09:00 05/08/21 08:07 Normal Saline 0.9% IV Not Given .Q10H HAZEL Levofloxacin 250 mg 05/06/21 19:00 05/07/21 18:55 Levofloxacin 250 Mg Tablet PO 05/08/21 19:01 250 mg Q24H HAZEL Administration Levothyroxine Sodium 50 mcg 05/06/21 07:00 05/08/21 05:47 Levothyroxine 25 Mcg Tablet PO 50 mcg QDAC HAZEL Administration Pantoprazole Sodium 40 mg 05/06/21 07:00 05/08/21 05:47 Pantoprazole 40 Mg Tablet PO 40 mg QDAC HAZEL Administration Sodium Chloride 10 ml 05/04/21 17:00 05/08/21 08:07 Sodium Chloride Flush 0.9% 10 Ml Syringe IVP 10 ml 0100,0900,1700 HAZEL Administration Venlafaxine HCl 37.5 mg 05/06/21 09:00 05/08/21 08:06 Venlafaxine Er 37.5 Mg Capsule PO 37.5 mg DAILY HAZEL Administration - Lab Result Fish Bone Diagrams: 05/08/21 05:21 05/08/21 05:21 - Additional Planning My Orders: My Active Orders 05/08/21 09:00 Ferrous Gluconate [Fergon] 324 mg PO DAILYWM Folic Acid 1 mg PO DAILY cloNIDine 0.1 MG PATCH [[id number]] 1 patch TOP Q7D 05/08/21 Lunch DIET [Low Sodium Diet] [DIET] Subjective - Subjective Patient Reports: Resting Comfortably, No Complaints Objective Vital Signs: Vital Signs - 24 hr 05/07/21 05/07/21 05/07/21 11:26 16:12 20:34 Temperature 36.7 C 36.5 C 36.7 C Heart Rate [ 74 83 88 Brachial] Respiratory 20 22 17 Rate Blood Pressure 168/63 H [Left Brachial artery] Blood Pressure 157/67 H 145/64 H 161/138 H [Right Brachial artery] O2 Saturation 100 97 98 05/08/21 05/08/21 05/08/21 00:46 01:00 04:46 Temperature 38.2 C H 36.3 C L 36.6 C Heart Rate [ 86 74 Brachial] Respiratory 21 21 Rate Blood Pressure [Left Brachial artery] Blood Pressure 153/65 H 158/65 H [Right Brachial artery] O2 Saturation 98 95 Oxygen O2 Source Room air I&O (Last 24 Hrs): Intake and Output Totals x24h 05/06/21 05/07/21 05/08/21 23:59 23:59 23:59 Intake Total 3782 2785.000 980 Output Total 1950 3350 600 Balance 1832 -565.000 380 General: Alert (Sleepy currently) HEENT: Mucous membr. moist/pink, Other (Eye opacity) Neck: Supple Neuro: Alert, Non Focal Cardiovascular: Regular rate, No murmurs Respiratory: No respiratory distress Abdomen: Soft Extremities: Other (Trace arm esdema) - Results Results: Laboratory Results WBC 6.1 x10^3/uL (4.8-10.8) 05/08/21 05:21 RBC 3.00 10^6/uL (4.20-5.40) L 05/08/21 05:21 Hgb 8.7 g/dL (12.0-16.0) L 05/08/21 05:21 Hct 26.2 % (37.0-47.0) L 05/08/21 05:21 MCV 87.3 fL (81.0-99.0) 05/08/21 05:21 MCH 29.0 pg (27.0-31.0) 05/08/21 05:21 MCHC 33.2 g/dL (32.0-36.0) 05/08/21 05:21 RDW 15.6 % (12.0-15.0) H 05/08/21 05:21 Plt Count 199 10^3/uL (130-450) 05/08/21 05:21 MPV 10.5 fL (7.9-10.8) 05/08/21 05:21 Neut # (Auto) 3.6 10^3/uL (1.5-6.6) 05/08/21 05:21 Lymph # (Auto) 1.8 10^3/uL (1.5-3.5) 05/08/21 05:21 [place] # (Auto) 0.5 10^3/uL (0.0-1.0) 05/08/21 05:21 Eos # (Auto) 0.2 10^3/uL (0.0-0.7) 05/08/21 05:21 Baso # (Auto) 0.0 10^3/uL (0.0-0.1) 05/08/21 05:21 Absolute Nucleated RBC 0.00 x10^3/uL 05/08/21 05:21 Nucleated RBC % 0.0 /100WBC 05/08/21 05:21 Sodium 136 mmol/L (135-145) 05/08/21 05:21 Potassium 4.7 mmol/L (3.5-5.0) 05/08/21 05:21 Chloride 107 mmol/L (101-111) 05/08/21 05:21 Carbon Dioxide 17 mmol/L (21-32) L 05/08/21 05:21 Anion Gap 12.0 (6-13) 05/08/21 05:21 BUN 78 mg/dL (6-20) H 05/08/21 05:21 Creatinine 6.6 mg/dL (0.4-1.0) H 05/08/21 05:21 Estimated GFR (MDRD) 6 (>89) L 05/08/21 05:21 Glucose 94 mg/dL (70-100) 05/08/21 05:21 Calcium 8.2 mg/dL (8.5-10.3) L 05/08/21 05:21 Phosphorus 3.5 mg/dL (2.5-4.6) 05/08/21 05:21 Magnesium 1.6 mg/dL (1.7-2.8) L 05/08/21 05:21 Iron 145 ug/dL (28-170) 05/08/21 05:21 TIBC 181 ug/dL (250-450) L 05/08/21 05:21 % Saturation 80 % (20-50) H 05/08/21 05:21 Transferrin 129 mg/dL (192-382) L 05/08/21 05:21 Total Bilirubin 0.7 mg/dL (0.2-1.0) 05/04/21 10:35 AST 15 IU/L (10-42) 05/04/21 10:35 ALT 17 IU/L (10-60) 05/04/21 10:35 Alkaline Phosphatase 59 IU/L (42-121) 05/04/21 10:35 Total Protein 9.8 g/dL (6.7-8.2) H 05/04/21 10:35 Albumin 3.2 g/dL (3.2-5.5) 05/04/21 10:35 Globulin 6.6 g/dL (2.1-4.2) H 05/04/21 10:35 Albumin/Globulin Ratio 0.5 (1.0-2.2) L 05/04/21 10:35 Lipase 49 U/L (22-51) 05/04/21 10:35 Vitamin B12 266 pg/mL (180-914) 05/08/21 05:21 Folate 4.88 ng/mL (5.90 - >24.8) L 05/08/21 05:21 TSH 1.64 uIU/mL (0.34-5.60) 05/05/21 05:20 Urine Color YELLOW 05/04/21 11:04 Urine Clarity CLOUDY (CLEAR) 05/04/21 11:04 Urine pH 6.0 PH (5.0-7.5) 05/04/21 11:04 Ur Specific [place] 1.020 (1.002-1.030) 05/04/21 11:04 Urine Protein 100 mg/dL (NEGATIVE) H 05/04/21 11:04 Urine Glucose (UA) NEGATIVE mg/dL (NEGATIVE) 05/04/21 11:04 Urine Ketones NEGATIVE mg/dL (NEGATIVE) 05/04/21 11:04 Urine Occult Blood MODERATE (NEGATIVE) H 05/04/21 11:04 Urine Nitrite NEGATIVE (NEGATIVE) 05/04/21 11:04 Urine Bilirubin NEGATIVE (NEGATIVE) 05/04/21 11:04 Urine Urobilinogen 0.2 (NORMAL) E.U./dL (NORMAL) 05/04/21 11:04 Ur Leukocyte Esterase LARGE (NEGATIVE) H 05/04/21 11:04 Urine RBC 6-10 /HPF (0-5) H 05/04/21 11:04 Urine WBC >25 /HPF (0-5) H 05/04/21 11:04 Urine WBC Clumps PRESENT 05/04/21 11:04 Ur Squamous Epith Cells RARE Squamous (<= Few) 05/04/21 11:04 Urine Bacteria Moderate /HPF (None Seen) H 05/04/21 11:04 Ur Microscopic Review INDICATED 05/04/21 11:04 Urine Culture Comments INDICATED 05/04/21 11:04 Urine Sodium 52.0 mmol/L 05/04/21 11:04 Nasal Adenovirus (PCR) NOT DETECTED 05/04/21 13:50 Nasal B. parapertussis DNA (PCR) NOT DETECTED 05/04/21 13:50 Nasal Coronavir 229E PCR NOT DETECTED 05/04/21 13:50 Nasal Coronavir HKU1 PCR NOT DETECTED 05/04/21 13:50 Nasal Coronavir NL63 PCR NOT DETECTED 05/04/21 13:50 Nasal Coronavir OC43 PCR NOT DETECTED 05/04/21 13:50 Nasal Enterovir/Rhinovir PCR NOT DETECTED 05/04/21 13:50 Nasal Influenza B PCR NOT DETECTED 05/04/21 13:50 Nasal Influenza A PCR NOT DETECTED 05/04/21 13:50 Nasal Parainfluen 1 PCR NOT DETECTED 05/04/21 13:50 Nasal Parainfluen 2 PCR NOT DETECTED 05/04/21 13:50 Nasal Parainfluen 3 PCR NOT DETECTED 05/04/21 13:50 Nasal Parainfluen 4 PCR NOT DETECTED 05/04/21 13:50 Nasal RSV (PCR) NOT DETECTED 05/04/21 13:50 Nasal B.pertussis DNA PCR NOT DETECTED 05/04/21 13:50 Nasal C.pneumoniae (PCR) NOT DETECTED 05/04/21 13:50 Víctor Human Metapneumo PCR NOT DETECTED 05/04/21 13:50 Nasal M.pneumoniae (PCR) NOT DETECTED 05/04/21 13:50 Nasal SARS-CoV-2 (PCR) NOT DETECTED 05/04/21 13:50
[2021-05-08] MEDS ORDERED: cloNIDine 0.1 MG PATCH TOP SCH (09:00)
[2021-05-08] MEDS: FERROUS GLUCONATE 324 MG TABLET PO SCH (09:23)
[2021-05-08] MEDS: FOLIC ACID 1 MG TABLET PO SCH (09:23)
[2021-05-08] MEDS ORDERED: MAGNESIUM SULFATE 2 GRAM 2 GM/50 ML BAG IV ONE (10:30)
[2021-05-08] MEDS ORDERED: hydrALAZINE INJ 20 MG/ML VIAL IVP PRN (12:35)
[2021-05-08] MEDS: SODIUM CHLORIDE 0.45% 1,000 ML IV SCH ×2 (13:36→22:51)
[2021-05-08 14:16] LABS: B. PARAPERTUSSIS- RESP PCR PAN NOT DETECTED; B. PERTUSSIS- RESP PCR PANEL NOT DETECTED; C. PNEUMONIAE- RESP PCR PANEL NOT DETECTED; CORONAVIRUS 229E-RESP PCR NOT DETECTED; CORONAVIRUS HKU1-RESP PCR NOT DETECTED; CORONAVIRUS NL63-RESP PCR NOT DETECTED; CORONAVIRUS OC43-RESP PCR NOT DETECTED; HUMAN METAPNEUMOVIRUS NOT DETECTED; INFLUENZA A- RESP PCR PANEL NOT DETECTED; INFLUENZA B - RESP PCR PANEL NOT DETECTED; M. PNEUMONIAE- RESP PCR PANEL NOT DETECTED; PARAINFLUENZA VIRUS 1 NOT DETECTED; PARAINFLUENZA VIRUS 2 NOT DETECTED; PARAINFLUENZA VIRUS 3 NOT DETECTED; PARAINFLUENZA VIRUS 4 NOT DETECTED; RHINOVIRUS/ENTEROVIRUS NOT DETECTED; RSV- RESP PCR PANEL NOT DETECTED; SARS-CoV-2 -RESP PCR PANEL NOT DETECTED
[2021-05-08] MEDS: levoFLOXacin 250 MG TABLET PO SCH (18:52)
[2021-05-08] MEDS: ATORVASTATIN 40 MG TABLET PO SCH (20:40)
[2021-05-09] MEDS ORDERED: ZINC OXIDE 20% OINT 30 GM TUBE TOP PRN (01:40)
[2021-05-09] MEDS: SODIUM CHLORIDE FLUSH 0.9% 10 ML SYRINGE IVP SCH ×2 (01:42→08:29)
[2021-05-09 06:05] LABS: BASOPHILS % (AUTO) 0.4 %; EOSINOPHILS # (AUTO) 0.1 10^3/uL (0.0-0.7); EOSINOPHILS % (AUTO) 1.1 %; HGB - HEMOGLOBIN 9.2 g/dL (12.0-16.0); LYMPHOCYTES % (AUTO) 19.2 %; MEAN CORPUSCULAR HEMOGLOBIN 28.3 pg (27.0-31.0); MEAN CORPUSCULAR HGB CONC 32.9 g/dL (32.0-36.0); MEAN CORPUSCULAR VOLUME 86.2 fL (81.0-99.0); MEAN PLATELET VOLUME 10.3 fL (7.9-10.8); MONOCYTES # (AUTO) 0.7 10^3/uL (0.0-1.0); NEUTROPHILS # (AUTO) 7.5 10^3/uL (1.5-6.6); NEUTROPHILS % (AUTO) 70.4 %; PLT - PLATELET COUNT 243 10^3/uL (130-450); RED BLOOD COUNT 3.25 10^6/uL (4.20-5.40); RED CELL DISTRIBUTION WIDTH 15.9 % (12.0-15.0); WHITE BLOOD COUNT 10.6 x10^3/uL (4.8-10.8)
[2021-05-09 06:21] LABS: CALCIUM 8.7 mg/dL (8.5-10.3); CREATININE 6.1 mg/dL (0.4-1.0); PHOSPHORUS 3.9 mg/dL (2.5-4.6); POTASSIUM 5.2 mmol/L (3.5-5.0)
[2021-05-09] MEDS: PANTOPRAZOLE 40 MG TABLET PO SCH (06:36)
[2021-05-09] MEDS: LEVOTHYROXINE 25 MCG TABLET PO SCH (06:55)
[2021-05-09] MEDS: FERROUS GLUCONATE 324 MG TABLET PO SCH (07:44)
[2021-05-09] MEDS: FOLIC ACID 1 MG TABLET PO SCH (08:29)
[2021-05-09] MEDS: VENLAFAXINE ER 37.5 MG CAPSULE PO SCH (08:29)
[2021-05-09] MEDS: HEPARIN 5,000 UNIT/ML VIAL SUBQ SCH (08:29)
--- NOTE | 2021-05-09 08:54 | Discharge Plan ---
"Discharge Plan for SNF / YESSY - Discharge Plan And Transition Orders Problem Reviewed?: Yes Disposition: 03 SNF DC/Xfer Condition: Fair Allergies and Adverse Reactions: Allergies Allergy/AdvReac Type Severity Reaction Status Date / Time amlodipine Allergy Unknown Verified 05/04/21 10:24 iodine Allergy Unknown Verified 05/04/21 10:24 Health Concerns: Patient was admitted with severe dehydration due to decreased oral intake and in severe acute renal failure with creatinine 9. She needs several more days of IV normal saline to continue to treat the renal failure. We also found a UTI and she has completed antibiotic treatment for this. She does not participate reliably with PT due to her cognitive state. A lift is needed to move her out of bed to chair. She is on treatment for her hypertension, hypothyroidism and iron deficiency and folate deficiency anemia. Plan of Treatment: As above. Care Goals: Improvement in symptoms and stabilization are the goals. Assessment: These instructions are provided for her new SNF/FDC. - SNF / FDC Transition Orders Admit to (Facility): [facility] Discharge Diagnosis: (1) Acute renal failure Improving. She continues to need iv Normal Saline for 5 more days. (2) Altered mental status Improved (3) Adult failure to thrive Improved (4) Pseudomonas Urinary tract infection Antibx therapy completed (5) Hypertension Her prior med was changed due to SUNITA, now on Clonidine patch and Coreg (6) Hypothyroidism Stable on her replacement therapy (7) Iron deficiency and Folate deficiency anemia Iron and Folate replacement therapy started (8) Hyponatremia Improved and continues to need iv Normal Saline for 5 more days (9) Hypophosphatemia Resolved with replacement Medicare Certification Statement: I certify that [facility] shelter care is medically necessary on a continuing basis for any of the conditions for which she/he is receiving care during hospitalization. Notify PCP of admission and forward orders to primary provider for signature. Weight on admission and: Weekly Call PCP immediately if weight increases by: 5 kg Other Notification Orders: Call PCP immediately if patient develops dyspnea, chest pain/tightness or edema. House Bowel Program: Yes Additional Bowel Program Orders: If no BM after 2 days, nurse may give M.O.M. 30ml PO PRN and/or ducolax Supp 1 RI and/or FELIBERTO 250mg P.O., and/or senna 1-2 tabs PO. On day 3 nurse may give repeat above order until residents constipation is resolved. Annual Influenza Vaccine (between May 28 and December 25): Yes Two-step PPD per [facility] [phone] or approved exception documents: Yes Treatments & Other Orders: iv 0.9 saline at 100 cc/hr for 5 days (stop after 05/14/21) Lab Tests or X-ray Orders: [facility] to check BUN/creat on 05/11 and 05/14/21 Medication Orders: PLEASE REFER TO THE DISCHARGE MEDICATION LIST. Insulin Orders?: No - Medications New Prescriptions: cloNIDine 0.1 MG PATCH [[id number]-Hpf-5] 1 patch TOP Q7D #4 patch carvediloL [Coreg] 3.125 mg PO BID #60 tablet Ferrous Gluconate [Fergon] 324 mg PO DAILYWM #30 tablet Folic Acid 1 mg PO DAILY #30 tablet Zinc Oxide 20% Oint [Zinc Oxide] 1 applic TOP PRN PRN #1 tub PRN Reason: Skin Care - Diet Type: Geriatric Texture: Regular Liquids: Thin Supplements: 4oz t.i.d with meals May have monthly special meal: Yes - Therapies | Activity Therapy: Evaluation | Treat if indicated: Speech, PT, OT Rehabilitation Potential: Maximize functional status Activity: Activity as Tolerated Follow Up: See Dr Ridge Kline or new PCP per routine."
[2021-05-09] MEDS ORDERED: SODIUM CHLORIDE 0.9% 1,000 ML IV SCH (09:00)
[2021-05-09] MEDS ORDERED: GABAPENTIN 100 MG CAPSULE PO SCH (09:00)
[2021-05-09] MEDS ORDERED: carvediloL 3.125 MG TABLET PO SCH (09:00)
--- NOTE | 2021-05-09 09:00 | DISCHARGE SUMMARY ---
Discharge Summary Admit Date: 05/04/21 Discharge Date: 05/09/21 Discharging Provider: Dr Georgette Roberts Primary Care Provider: Dr Ridge Kline Code Status: Do Not Attempt Resuscitation Condition at Discharge: Fair Discharge Disposition: 03 SNF DC/Xfer - HPI History of Present Illness: From the admission H&P of Dr Ga Garg: This is a 76-year-old white female with a past medical history significant for hypertension, hypothyroidism who presents today from [facility] due to decreased oral intake and decreased urine output. Most of the history is obtained from the ER physician and EMR as the patient does appear somewhat altered. The patient tells me that she feels fine and she is not sure why she is here at the hospital. She does admit to decreased oral intake over the past week. She states she has has no appetite. She denies feeling nauseous or having any emesis. She reports no abdominal pain, chest pain, dyspnea. She believes that she has been urinating okay but staff at [place] noted she has had decreased urine output for several days. The patient reports no dysuria, hematuria to her knowledge. She reports taking her medications as usually prescribed. In the emergency department, she was noted to be afebrile with heart rate in the 80s. She was normotensive. Labs were significant for a BUN of 111 and a creatinine of 9.1. The patient has a POLST form with her that states she is a DNR with a focus on comfort. The patient has made it quite clear to the emergency department physician and myself that she does not want hemodialysis and she is a DNR. Given the above findings, Hospitalist was consulted for vanessa alexandra. - HOSPITAL COURSE Hospital Course: (1) Acute renal failure She was started on iv hydration and had very slow improvement of BUN/creat from 111/9.1. At time of discharge, these were 74/6.1. She was discharged with order for iv Normal Saline for 5 more days (estimated) and a BMP, BUN/creat check in 2 days and 5 days. (2) Altered mental status Improved to her presumed baseline (dementia) with iv hydration and a better BUN and serum sodium. (3) Adult failure to thrive She claimed that she had stopped eating and drinking from being depressed. She was seen for mental health evaluation by [employer] and was not suicidal, and resumed eating and drinking while here. (4) Pseudomonas Urinary tract infection Her U/A was abnormal and grew Pseudomonas. She was put on empiric antibiotcs at admission and her antibx therapy was completed while she was here. (5) Hypertension Her prior BP med was changed due to SUNITA; she is now on Clonidine patch and Coreg, no INGE. (6) Hypothyroidism Stable and we continued her replacement therapy (7) Iron deficiency and Folate deficiency anemia Hgb was 10.8 at admission and decreased to 9.2 with iv hydration. Serum levels were checked and Iron and Folate replacement therapy was started. (8) Hyponatremia Her sodium was 129 at admission. She had hypovolemic hyponatremia and this improved to 136, then was 134 at discharge, and we ordered iv Normal Saline for 5 more days. A follow-up BMP was ordered to be done at 2 days and 5 days after discharge. (9) Hypophosphatemia This resolved with replacement - ALLERGIES Allergies/Adverse Reactions: Allergies Allergy/AdvReac Type Severity Reaction Status Date / Time amlodipine Allergy Unknown Verified 05/04/21 10:24 iodine Allergy Unknown Verified 05/04/21 10:24 - MEDICATIONS Home Medications: Ambulatory Orders Medication Instructions Recorded Confirmed Fluticasone [Flonase] 1 spray IN DAILY 10/26/20 05/04/21 Gabapentin [Neurontin] 200 mg PO DAILY 10/26/20 05/04/21 Levothyroxine Sodium [Synthroid] 50 mcg PO DAILY 10/26/20 05/04/21 Omeprazole 40 mg PO DAILY 10/26/20 05/04/21 Oxybutynin [Ditropan] 10 mg PO DAILY 10/26/20 05/04/21 Rosuvastatin Calcium [Crestor] 20 mg PO DAILY 10/26/20 05/04/21 Acetaminophen [Tylenol] 325 mg PO DAILY PRN 04/07/21 05/04/21 Nystatin [Nystop] 1 applic TOP BID 04/07/21 05/04/21 Venlafaxine ER [Effexor ER] 37.5 mg PO DAILY 05/04/21 05/04/21 Ferrous Gluconate [Fergon] 324 mg PO DAILYWM #30 tablet 05/09/21 Folic Acid 1 mg PO DAILY #30 tablet 05/09/21 Zinc Oxide 20% Oint [Zinc Oxide] 1 applic TOP PRN PRN #1 tub 05/09/21 carvediloL [Coreg] 3.125 mg PO BID #60 tablet 05/09/21 cloNIDine 0.1 MG PATCH 1 patch TOP Q7D #4 patch 05/09/21 [[id number]] - PHYSICAL EXAM AT DISCHARGE General Appearance: positive: No acute distress, Alert, Other (Obese) Eyes Bilateral: positive: Normal inspection, EOMI ENT: positive: ENT inspection nml, No signs of dehydration, Other (Poor dentition, voice hoarse) Neck: positive: Nml inspection, No JVD Respiratory: positive: No respiratory distress, Breath sounds nml Cardiovascular: positive: Regular rate & rhythm, No murmur Abdomen: positive: Non-tender, Nml bowel sounds Skin: positive: Warm, Dry Extremities: positive: Non-tender Neurologic/Psychiatric: positive: CN's nml (2-12), Disoriented to person, Disoriented to place, Disoriented to time (Non-focal grossly) - LABS Result Diagrams: 05/09/21 05:35 05/09/21 05:35 - DIAGNOSTIC IMAGING Diagnostic Imaging Results: Final report reviewed - FOLLOW UP Follow Up: See PCP for hospital follow-up in 1-2 weeks or sooner if BUN/creat abnormal or worsening. - TIME SPENT Time Spent in Discharge (Minutes): 60
[2021-05-09 12:05] VITALS: BP 166/78
== END 2021-05-09 13:28 | DRG 683 ==
LOC: EDUNIT# → ED 10:07 → MS2 13:23
PROVIDERS: ADMIT Internal Medicine; ATTEND Internal Medicine
DX: N17.9 Acute kidney failure, unspecified (principal); E87.1 Hypo-osmolality and hyponatremia; N30.01 Acute cystitis with hematuria; G35 Multiple sclerosis; Z16.19 Resistance to other specified beta lactam antibiotics; B96.5 Pseudomonas (aeruginosa) (mallei) (pseudomallei) as the cause of diseases classified elsewhere; E86.0 Dehydration; R41.0 Disorientation, unspecified; E03.9 Hypothyroidism, unspecified; F03.90 Unspecified dementia, unspecified severity, without behavioral disturbance, psychotic disturbance, mood disturbance, and anxiety; R62.7 Adult failure to thrive; Z68.32 Body mass index [BMI] 32.0-32.9, adult; F32.9 Major depressive disorder, single episode, unspecified; I10 Essential (primary) hypertension; D50.9 Iron deficiency anemia, unspecified; D52.9 Folate deficiency anemia, unspecified; E83.39 Other disorders of phosphorus metabolism; H54.7 Unspecified visual loss; Z66 Do not resuscitate; Z20.822 Contact with and (suspected) exposure to COVID-19; Z79.899 Other long term (current) drug therapy; Z99.3 Dependence on wheelchair
CPT/HCPCS: 36415; 76770; 80048; 80053; 81001; 82607; 82746; 83540; 83690; 83735; 84100; 84300; 84443; 84466; 85025; 87077; 87086; 87181; 87631; 93005; 96360; 96361; 97161; 99285; A9270; J7120; 0202U; 81003